=== PATIENT | male | born 1980 | race Caucasian/White ===

== ENCOUNTER 2021-06-22 01:37 | Inpatient (IN) | payer SELFPAY ==
[2021-06-22] VITALS (22 sets, daily range): BP systolic 109–172; BP diastolic 81–108; PULSE 75–132; RESP 14–28; TEMP 36.5–39.1; O2SAT 89–99; BMI 35.9
--- NOTE | 2021-06-22 01:38 | XRR_ITS ---
PROCEDURE INFORMATION: Exam: XR Chest Exam date and time: 06/22/2021 1:38 AM Age: 40 years old Clinical indication: Dyspnea; Additional info: Cough TECHNIQUE: Imaging protocol: XR of the chest. Views: 1 view. COMPARISON: No relevant prior studies available. FINDINGS: Lungs: Bilateral pulmonary infiltrates which may be secondary to pneumonia or COVID-19. Pleural spaces: Unremarkable. No pleural effusion. No pneumothorax. Heart/Mediastinum: Unremarkable. No cardiomegaly. Bones/joints: Unremarkable. XR/XR chest 1V portable [id number] IMPRESSION: Bilateral pulmonary infiltrates which may be secondary to pneumonia or COVID-19. Radiation Dose CTDIVOL = (mGy): DLP = (mGy-cm)
--- NOTE | 2021-06-22 01:44 | ECG_ITS ---
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 Measurements Intervals [place] Rate: 128 P: 19 SD: 141 QRS: 68 QRSD: 90 T: 34 QT: 298 QTc: 435 Interpretive Statements SINUS TACHYCARDIA ABNORMAL RHYTHM ECG No previous ECG available for comparison Electronically Signed On 06-22-2021 15:53:00 NURSE CASE MANAGEMENT by Kylah Viera M.D. [id number]
--- NOTE | 2021-06-22 01:47 | W.ED.SOB ---
HPI - SOB/Dyspnea General: Chief Complaint: Shortness of Breath/Dyspnea Stated Complaint: Cough, shortness of breath Time Seen by Provider: 06/22/21 01:42 Source: EMS Mode of arrival: EMS Limitations: no limitations History of Present Illness: HPI Narrative: 40-year-old male states he is not felt well over the last week. He states he has been traveling for his job and is been around a lot of people he states over the last week he has had cough fever body aches and increased shortness of breath. He states his shortness of breath got much worse tonight. Patient is hypoxic with EMS he is currently on 6 L and is 89%. He states his cough has been productive he is a smoker he has no known lung issues in the past. He is febrile as well he denies any worsening improving factors denies any pain denies any vomiting or diarrhea. Associated symptoms: Reports fever(s); Deny abdominal pain, chest pain, nausea or vomiting Review of Systems Const: Reports: fever(s), chills and body aches Eyes: Denies: blurry vision or eye discomfort ENMT: Denies: throat pain or dental pain Card: Denies: chest pain Resp: Reports: dyspnea and productive cough GI: Denies: abdominal pain, nausea, vomiting or diarrhea : Denies: dysuria Musc: Denies: neck pain or back pain Skin/Breast: Denies: rash Neuro: Denies: headache(s) Psych: Denies: depression Nav/Lymph: Denies: easy bruising All/Imm: Denies: urticaria Physical Exam Const: COMMON NORMALS: patient oriented x3 GENERAL APPEARANCE: in distress and ill appearing HENMT: COMMON NORMALS: normocephalic and atraumatic HEAD & SCALP: normocephalic and atraumatic Eye: COMMON NORMALS: Equal, round and reactive pupils present and EOMs intact bilaterally PUPIL: Yes Equal, round and reactive pupils present Neck/C-Spine: COMMON NORMALS: full ROM and supple Chest: COMMONS NORMALS: normal inspection of the chest and normal palpation of entire chest wall Resp: COMMON NORMALS: normal respiratory effort, No retractions and No use of accessory muscles EFFORT & INSPECTION: Yes tachypneic AUSCULTATION: rales and wheezes Cardio: COMMON NORMALS: regular rhythm and No murmurs present (Cardio) RATE: tachycardic RHYTHM: regular rhythm GI: COMMON NORMALS: Normal to inspection, nondistended, normoactive bowel sounds present, Soft to palpation, non-tender and no masses PALPATION: Yes Soft to palpation Extremity: COMMON NORMALS: normal to inspection and full ROM Neuro: COMMON NORMALS: patient oriented x3, moves all extremities and no focal motor deficits Psych: COMMON NORMALS: mental status grossly normal, Normal thought process present and cooperative THOUGHT PROCESS: Normal thought process present Skin: COMMON NORMALS: no rashes or lesions noted and no wounds GENERAL SKIN EXAM: no rashes or lesions noted Course Vital Signs: Vital signs: Vital Signs Temperature 100.8 F H 06/22/21 02:15 Pulse Rate 122 H 06/22/21 02:21 Respiratory Rate 20 H 06/22/21 02:15 Blood Pressure 172/101 06/22/21 02:15 Pulse Oximetry 93 06/22/21 02:21 MDM - SOB/Dyspnea MDM Narrative: Medical decision making narrative: Patient presents here with bacterial versus Covid pneumonia requiring BiPAP he is much improved on BiPAP currently at 40% oxygen on BiPAP spoke to hospitalist and will admit at this time we will send a [facility] Covid as his rapid was negative patient was started on IV antibiotics as well. Lab Data: Labs: Lab Results 06/22/21 06/22/21 06/22/21 01:49 01:49 01:49 WBC 9.5 10^3/uL 10^3/ uL (4.0-10.0) RBC 3.22 10^6/uL L 10 ^6/uL (4.1-5.3) Hgb 11.2 g/dL L g/dL (11.7-16.6) Hct 31.7 % L % (42.0-52.0) MCV 98.4 fl H fl (80-94) MCH 34.8 pg H pg (28.0-34.0) MCHC 35.3 g/dL g/dL (30.0-36.0) RDW 12.9 % % (12.1-15.1) Plt Count 278 10^3/cmm 10^3 /cmm (130-400) MPV 10.7 fL H fL (7.4-10.4) Neut % (Auto) 71.6 % % Lymph % (Auto) 16.1 % % Noble % (Auto) 9.9 % % Eos % (Auto) 0.3 % % Baso % (Auto) 0.7 % % Neut # (Auto) 6.77 10^3/uL 10^3 /uL (1.8-7.7) Lymph # (Auto) 1.5 10^3/uL 10^3/ uL (0.8-4.8) Noble # (Auto) 0.9 10^3/uL 10^3/ uL (0.2-0.9) Eos # (Auto) 0.0 10^3/uL 10^3/ uL (0.0-0.8) Baso # (Auto) 0.1 10^3/uL 10^3/ uL (0.0-0.1) Nucleated RBC % (a uto) 0 % % Nucleated RBCs # 0.0 /100WBC /100W BC PT 14.20 SECONDS SEC ONDS (12.1-14.9) INR 1.07 (0.8-1.2) Specimen Type Sample Site ABG pH ABG pCO2 ABG pO2 ABG HCO3 ABG Base Excess Raul Test Hematocrit Hgb O2 Saturation Carboxyhemoglobin Methemoglobin Total Hemoglobin O2 Delivery Device O2 Liters/Min Sewer Pipe Cleaner ID Sodium Potassium Chloride Carbon Dioxide Anion Gap BUN Creatinine GFR Calculation Glucose Calculated Osmolal ity Lactic Acid Calcium Ferritin Total Bilirubin AST ALT Alkaline Phosphata se C-Reactive Protein NT-Pro-B Natriuret Pep Total Protein Albumin Globulin SARS-CoV-2 Ag (Rap id) Negative (Negative) 06/22/21 06/22/21 06/22/21 01:49 01:50 01:57 WBC RBC Hgb Hct MCV MCH MCHC RDW Plt Count MPV Neut % (Auto) Lymph % (Auto) Noble % (Auto) Eos % (Auto) Baso % (Auto) Neut # (Auto) Lymph # (Auto) Noble # (Auto) Eos # (Auto) Baso # (Auto) Nucleated RBC % (a uto) Nucleated RBCs # PT INR Specimen Type Arterial Sample Site Radial, right ABG pH 7.54 H (7.35-7.45) ABG pCO2 34.5 mmHg L mmHg (35-45) ABG pO2 46.2 mmHg L mmHg (80.0-100.0) ABG HCO3 29.4 mmol/L H mmo l/L (22-26) ABG Base Excess 6.7 mmol/L H mmol /L (-2.0-2.0) Raul Test Pos Hematocrit 35.9 % L % (42-52) Hgb O2 Saturation 82.9 % L % (95-100) Carboxyhemoglobin 2.0 %THgb %THgb (0.4-20.1) Methemoglobin 0.8 % % (0.4-1.5) Total Hemoglobin 11.7 g/dL L g/dL (14-18) O2 Delivery Device Nc O2 Liters/Min 6.0 % % Sewer Pipe Cleaner ID Buttr Sodium 140 mmol/L mmol/L (136-145) Potassium 3.7 mmol/L mmol/L (3.5-5.1) Chloride 100 mmol/L mmol/L (98-107) Carbon Dioxide 26 mmol/L mmol/L (22-29) Anion Gap 17.7 (5-19) BUN 3 mg/dL L mg/dL (6-20) Creatinine 0.4 mg/dL L mg/dL (0.7-1.2) GFR Calculation 237.1 mL/min H mL /min (90-130) Glucose 123 mg/dL H mg/dL (65-115) Calculated Osmolal ity 288 mOsm/kg mOsm/ kg (285-295) Lactic Acid 2.0 mmol/L mmol/L (0.5-2.2) Calcium 8.5 mg/dL mg/dL (8.5-10.5) Ferritin 304 ng/mL ng/mL (30-400) Total Bilirubin 0.2 mg/dL mg/dL (0.15-1.2) AST 22 U/L U/L (0-40) ALT 23 U/L U/L (0-41) Alkaline Phosphata se 80 IU/L IU/L (40-130) C-Reactive Protein 84.4 mg/L H mg/L (0.0-4.9) NT-Pro-B Natriuret Pep 1432 pg/mL H pg/m L (0-125) Total Protein 5.9 g/dL L g/dL (6.6-8.7) Albumin 3.3 g/dL L g/dL (3.5-5.2) Globulin 2.6 g/dL g/dL (1.3-4.6) SARS-CoV-2 Ag (Rap id) Imaging Data^: CXR: Attestation: I personally reviewed and interpreted this imaging study as follows: Radiologist's impression: [address] [address] XRay Report Signed Patient: Michael Ortiz Unit #: [id number] : 1980 Age/Sex: 40 / M ADM Date: 06/22/21 Loc: ER Room/Bed: Attending Dr: Ordering Provider/Ordering MD: Hans Jalloh MD Date of Service: 06/22/21 Procedure(s): XR chest 1V portable [id number] Accession Number(s): [id number] Report Number: [id number] PROCEDURE INFORMATION: Exam: XR Chest Exam date and time: 06/22/2021 1:38 AM Age: 40 years old Clinical indication: Dyspnea; Additional info: Cough TECHNIQUE: Imaging protocol: XR of the chest. Views: 1 view. COMPARISON: No relevant prior studies available. FINDINGS: Lungs: Bilateral pulmonary infiltrates which may be secondary to pneumonia or COVID-19. Pleural spaces: Unremarkable. No pleural effusion. No pneumothorax. Heart/Mediastinum: Unremarkable. No cardiomegaly. Bones/joints: Unremarkable. XR/XR chest 1V portable [id number] IMPRESSION: Bilateral pulmonary infiltrates which may be secondary to pneumonia or COVID-19. Radiation Dose CTDIVOL = (mGy): DLP = (mGy-cm) Dictated By: Michael Moncada Signed By: Michael Moncada Signed Date/Time: 06/22/21 0253 DD/ 0138 EKG Data^: EKG 1: Attestation: I personally reviewed and interpreted this EKG as follows: EKG Interpretation Date: 06/22/21 EKG interpretation time: 01:54 Interpretation: sinus tach hr [address] or t wave abnormalities qrs 90 qtc 374 Critical Care Time Critical Care Time: Critical Care Time: Yes Total Critical Care Time: 35 Attestation: The high probability of a clinically significant, sudden or life threatening deterioration of the patient's [] system(s) required my full and direct attention, intervention and personal management. The critical care time is as shown. This time is in addition to time spent performing any reported procedures but includes the following: [x] Data and vital sign review and interpretation [x] Patient assessment, examination and intervention [x] Documentation [x] Medication orders and management Discharge Plan Discharge Patient Disposition: Admitted As Inpatient Clinical Impression: Community acquired pneumonia Qualifiers: Laterality: right Lung location: unspecified part of lung Qualified Code(s): J18.9 - Pneumonia, unspecified organism Condition: Stable Coding Level of Care Code ED Petroleum Analyst for [facility] Exam Comprehensive
[2021-06-22 02:02] LABS: ABG PCO2 34.5 mmHg (35-45); ABG PH Result 7.54 (7.35-7.45); Arterial Blood Gas Hematocrit 35.9 % (42-52); Base Excess ABG 6.7 mmol/L (-2.0-2.0); Blood Gas Allen Test Pos; Blood Gas Sample Site Radial, right; Blood Gas Sample Type Arterial; HCO3 ABG 29.4 mmol/L (22-26); HGB O2 Sat 82.9 % (95-100); Methemoglobin 0.8 % (0.4-1.5); Oxygen Device NC; PO2 ABG 46.2 mmHg (80.0-100.0); Total Hemoglobin 11.7 g/dL (14-18)
[2021-06-22] MEDS: acetaminophen 500 mg Tablet 1000 MG PO (02:03)
[2021-06-22] MEDS: dexamethasone 10 mg/mL INJ 6 MG IVP (02:04)
[2021-06-22] MEDS: sodium chloride 0.9% 1,000 ML 999 ML IV ×2 (02:07→03:09)
[2021-06-22 02:11] LABS: INR 1.07 (0.8-1.2)
[2021-06-22 02:12] LABS: Basophils # 0.1 10^3/uL (0.0-0.1); Basophils % 0.7 %; Eosinophils % 0.3 %; Hematocrit 31.7 % (42.0-52.0); Hemoglobin 11.2 g/dL (11.7-16.6); Lymphocytes # 1.5 10^3/uL (0.8-4.8); Lymphocytes % 16.1 %; Mean Corpuscular HGB Conc 35.3 g/dL (30.0-36.0); Mean Corpuscular Hemoglobin 34.8 pg (28.0-34.0); Mean Corpuscular Volume 98.4 fl (80-94); Mean Platelet Volume 10.7 fL (7.4-10.4); Monocytes # 0.9 10^3/uL (0.2-0.9); Monocytes % 9.9 %; Neutrophils # 6.77 10^3/uL (1.8-7.7); Neutrophils % 71.6 %; Nucleated Red Blood Cells % 0 %; Platelet Count 278 10^3/cmm (130-400); Red Blood Count 3.22 10^6/uL (4.1-5.3); Red Cell Distribution Width 12.9 % (12.1-15.1); White Blood Count 9.5 10^3/uL (4.0-10.0)
[2021-06-22 02:28] LABS: SARS Covid-2 Antigen Negative (Negative)
[2021-06-22 02:30] LABS: Alanine Aminotransferase 23 U/L (0-41); Albumin Level 3.3 g/dL (3.5-5.2); Alkaline Phosphatase 80 IU/L (40-130); Anion Gap 17.7 (5-19); Aspartate Amino Transferase 22 U/L (0-40); Blood Urea Nitrogen 3 mg/dL (6-20); C Reactive Protein 84.4 mg/L (0.0-4.9); Calcium 8.5 mg/dL (8.5-10.5); Carbon Dioxide 26 mmol/L (22-29); Chloride 100 mmol/L (98-107); Ferritin 304 ng/mL (30-400); Globulin 2.6 g/dL (1.3-4.6); Glomerular Filtration Rate 237.1 mL/min (90-130); Glucose 123 mg/dL (65-115); NT Pro B Type Natriuretic Pept 1432 pg/mL (0-125); Osmolality Calculated 288 mOsm/kg (285-295); Potassium 3.7 mmol/L (3.5-5.1); Sodium 140 mmol/L (136-145); Total Bilirubin 0.2 mg/dL (0.15-1.2); Total Protein 5.9 g/dL (6.6-8.7)
[2021-06-22 02:37] LABS: Slide Review Slide Review Perform
[2021-06-22] MEDS: azithromycin 500 MG in sodium chloride 0.9% 250 ML 250 MG IV ×2 (03:07→12:30)
[2021-06-22] MEDS: cefTRIAXone 1,000 MG in sodium chloride 0.9% (plus) 50 ML 100 MG IV ×2 (03:09→11:06)
[2021-06-22 03:35] LABS: D Dimer 4.75 ug/mIFEU (0-0.59)
--- NOTE | 2021-06-22 04:06 | PC.NURSE ---
Admit Note Patient admitted to CSU room 107 from ED via stretcher. Covering service notified. Patient presents with increased work of breathing over past five days. Patient is febrile at this time 102.3. Patient stated, I am an alcoholic . He reports drinking a lot of hard liquour daily. Informed Dr Carson of patient's report of being an alcoholic and received telephone order to begin CIWA protocol. RBVO this order. Patient denies any home medications or medical history. Orders reviewed & will continue to monitor. Patient oriented to environment, equipment, and informed of the following as found in the admission booklet: patient rights & responsibilities, visitor policy, hand and respiratory hygiene practice. Other education includes: use of cpap/bipap, oxygen SpO2 and CIWA protocol. Patient verbalized complete understanding.
[2021-06-22] MEDS: LORazepam 2 mg/mL INJ 1 mL IVP ×2 (04:34→20:59)
--- NOTE | 2021-06-22 07:04 | CTR_ITS ---
PROCEDURE INFORMATION: Exam: CTA Chest With Contrast Exam date and time: 06/22/2021 7:04 AM Age: 40 years old Clinical indication: Shortness of breath; Additional info: Evalute for pe, possible covid, elevated d dimer TECHNIQUE: Imaging protocol: Computed tomographic angiography of the chest with contrast. 3D rendering (Not supervised by radiologist): MIP and/or 3D reconstructed images were created by the technologist. Radiation optimization: All CT scans at this facility use at least one of these dose optimization techniques: automated exposure control; mA and/or kV adjustment per patient size (includes targeted exams where dose is matched to clinical indication); or iterative reconstruction. Contrast material: OMNI 350; Contrast volume: 95 ml; Contrast route: INTRAVENOUS (IV); COMPARISON: XR CHEST 06/22/2021 2:02 AM RADIATION DOSE METRICS: Total DLP (mGy-cm): 1183.73 FINDINGS: Pulmonary arteries: No sign of acute pulmonary embolism. Aorta: No thoracic aortic aneurysm or dissection when allowing for pulsation artifact. Lungs: There are bilateral, multifocal mixed character pulmonary opacities, some ground-glass and interstitial with others being densely consolidative with air bronchogram formation. The findings would be compatible with bilateral pneumonia, potentially due to COVID-19. Pleural spaces: Trace right pleural effusion. No pneumothorax. Heart: The heart is not enlarged. No pericardial effusion. Lymph nodes: Slightly prominent mediastinal and right hilar lymph nodes. Bones/joints: Mild multilevel disc degeneration which Schmorl's node formation in the thoracic spine. Soft tissues: No acute soft tissue abnormality. CT/CT angio chest PE protcl [id number] IMPRESSION: 1. No sign of acute pulmonary embolism. 2. Bilateral pneumonia, potentially due to COVID-19. Radiation Dose CTDIVOL = (mGy): DLP = 1183.73 (mGy-cm)
--- NOTE | 2021-06-22 07:18 | PM.HP ---
Providers/Chief Complaint Admitting Physician: Angela Carson MD Chief Complaint: Cough, shortness of breath History of Present Illness Michael Ortiz is a 40 year old male prsenting to ER today with one week of cough, dyspnea, generalized weakness and fever. CXR shows B/L pneumonia, new 02 requirement of 5lpm. No hemoptysis. Review of Systems General: Reports: 10 or more systems reviewed and unremarkable except in HPI and below Const: Denies: fever(s), chills or body aches Eyes: Denies: change in vision, blurry vision or photophobia ENMT: Reports: hoarseness; Denies: throat pain, enlarged tonsils, odynophagia or nasal congestion Card: Denies: chest pain, palpitations, irregular heart rhythm, edema, swelling of feet/ankles, lightheadedness, pre-syncope, dyspnea on exertion or orthopnea Resp: Denies: dyspnea, productive cough, non-productive cough, wheezing, stridor, pain on inspiration, change in phlegm color, hemoptysis or chest congestion GI: Denies: abdominal pain, nausea, vomiting, hematemesis, coffee ground emesis, dysphagia, heartburn, diarrhea, constipation, GI cramping, change in stool character, hematochezia or melena : Denies: flank pain, dysuria, urinary frequency, urinary urgency, urinary hesitancy or hematuria Musc: Denies: neck pain, back pain, extremity pain, joint swelling, joint warmth or deformity Neuro: Denies: headache(s), numbness in extremities, weakness in extremities, sensory changes, difficulty walking, frequent falls, dizziness, vertigo, behavioral changes, Slurred speech present or seizure-like activity Psych: Denies: anxiety, depression, suicidal ideation or homicidal ideation Endo: Denies: polyuria, polydipsia, tired all the time, cold intolerance or hot flashes Nav/Lymph: Denies: easy bruising or easy bleeding Medications/Allergies Home Medications Medication Instructions Recorded Confirmed Last Taken Type No Known Home Medications 06/22/21 06/22/21 Unknown History Allergies Allergy/AdvReac Type Severity Reaction Status Date / Time Penicillins Allergy Unknown Verified 06/22/21 01:44 Vitals/I&O/Wt Last Vital Signs Temp 102.3 F H 06/22/21 04:05 Pulse 90 06/22/21 06:15 Resp 19 H 06/22/21 06:15 BP 138/107 06/22/21 04:05 Pulse Ox 94 06/22/21 06:15 06/21/21 06/22/21 06/22/21 22:59 06:59 14:59 Intake Total 2300 / 2300 Output Total 700 / 700 Balance 1600 / 1600 Weight last 48 hrs Weight 113.398 kg Physical Exam Narrative: EXAM NARRATIVE: General: No acute distress, AO x3 HEENT: PERRLA, pupils bilaterally equal and reactive, pallors not present Chest: B/L coarse breath sounds CVS: S1-S2 regular, no murmurs, no tachycardia, no gallops, no rubs Abdomen: Soft, nontender, no organomegaly, bowel sounds present Neuro: No focal deficits, no facial deformity, AO x3, power 5/5 in all limbs Data : 06/22/21 01:49 06/22/21 01:49 Other Labs: Laboratory Results WBC 9.5 10^3/uL (4.0-10.0) 06/22/21 01:49 RBC 3.22 10^6/uL (4.1-5.3) L 06/22/21 01:49 Hgb 11.2 g/dL (11.7-16.6) L 06/22/21 01:49 Hct 31.7 % (42.0-52.0) L 06/22/21 01:49 MCV 98.4 fl (80-94) H 06/22/21 01:49 MCH 34.8 pg (28.0-34.0) H 06/22/21 01:49 MCHC 35.3 g/dL (30.0-36.0) 06/22/21 01:49 RDW 12.9 % (12.1-15.1) 06/22/21 01:49 Plt Count 278 10^3/cmm (130-400) 06/22/21 01:49 MPV 10.7 fL (7.4-10.4) H 06/22/21 01:49 Neut % (Auto) 71.6 % 06/22/21 01:49 Lymph % (Auto) 16.1 % 06/22/21 01:49 Stephenson % (Auto) 9.9 % 06/22/21 01:49 Eos % (Auto) 0.3 % 06/22/21 01:49 Baso % (Auto) 0.7 % 06/22/21 01:49 Neut # (Auto) 6.77 10^3/uL (1.8-7.7) 06/22/21 01:49 Lymph # (Auto) 1.5 10^3/uL (0.8-4.8) 06/22/21 01:49 Stephenson # (Auto) 0.9 10^3/uL (0.2-0.9) 06/22/21 01:49 Eos # (Auto) 0.0 10^3/uL (0.0-0.8) 06/22/21 01:49 Baso # (Auto) 0.1 10^3/uL (0.0-0.1) 06/22/21 01:49 Nucleated RBC % (auto) 0 % 06/22/21 01:49 Nucleated RBCs # 0.0 /100WBC 06/22/21 01:49 PT 14.20 SECONDS (12.1-14.9) 06/22/21 01:49 INR 1.07 (0.8-1.2) 06/22/21 01:49 D-Dimer 4.75 ug/mIFEU (0-0.59) H 06/22/21 01:49 Specimen Type Arterial 06/22/21 01:50 Sample Site Radial, right 06/22/21 01:50 ABG pH 7.54 (7.35-7.45) H 06/22/21 01:50 ABG pCO2 34.5 mmHg (35-45) L 06/22/21 01:50 ABG pO2 46.2 mmHg (80.0-100.0) L 06/22/21 01:50 ABG HCO3 29.4 mmol/L (22-26) H 06/22/21 01:50 ABG Base Excess 6.7 mmol/L (-2.0-2.0) H 06/22/21 01:50 Raul Test Pos 06/22/21 01:50 Hematocrit 35.9 % (42-52) L 06/22/21 01:50 Hgb O2 Saturation 82.9 % (95-100) L 06/22/21 01:50 Carboxyhemoglobin 2.0 %THgb (0.4-20.1) 06/22/21 01:50 Methemoglobin 0.8 % (0.4-1.5) 06/22/21 01:50 Total Hemoglobin 11.7 g/dL (14-18) L 06/22/21 01:50 O2 Delivery Device Nc 06/22/21 01:50 O2 Liters/Min 6.0 % 06/22/21 01:50 Rotary Driller ID Buttr 06/22/21 01:50 Sodium 140 mmol/L (136-145) 06/22/21 01:49 Potassium 3.7 mmol/L (3.5-5.1) 06/22/21 01:49 Chloride 100 mmol/L (98-107) 06/22/21 01:49 Carbon Dioxide 26 mmol/L (22-29) 06/22/21 01:49 Anion Gap 17.7 (5-19) 06/22/21 01:49 BUN 3 mg/dL (6-20) L 06/22/21 01:49 Creatinine 0.4 mg/dL (0.7-1.2) L 06/22/21 01:49 GFR Calculation 237.1 mL/min (90-130) H 06/22/21 01:49 Glucose 123 mg/dL (65-115) H 06/22/21 01:49 Calculated Osmolality 288 mOsm/kg (285-295) 06/22/21 01:49 Lactic Acid 2.0 mmol/L (0.5-2.2) 06/22/21 01:57 Calcium 8.5 mg/dL (8.5-10.5) 06/22/21 01:49 Ferritin 304 ng/mL (30-400) 06/22/21 01:49 Total Bilirubin 0.2 mg/dL (0.15-1.2) 06/22/21 01:49 AST 22 U/L (0-40) 06/22/21 01:49 ALT 23 U/L (0-41) 06/22/21 01:49 Alkaline Phosphatase 80 IU/L (40-130) 06/22/21 01:49 C-Reactive Protein 84.4 mg/L (0.0-4.9) H 06/22/21 01:49 NT-Pro-B Natriuret Pep 1432 pg/mL (0-125) H 06/22/21 01:49 Total Protein 5.9 g/dL (6.6-8.7) L 06/22/21 01:49 Albumin 3.3 g/dL (3.5-5.2) L 06/22/21 01:49 Globulin 2.6 g/dL (1.3-4.6) 06/22/21 01:49 SARS-CoV-2 Ag (Rapid) Negative (Negative) 06/22/21 01:49 Impressions Chest X-Ray 06/22/21 01:38 IMPRESSION: Bilateral pulmonary infiltrates which may be secondary to pneumonia or COVID-19. Radiation Dose CTDIVOL = (mGy): DLP = (mGy-cm) Micro: Microbiology 06/22/21 02:01 Blood Culture - Preliminary Blood SPECIMEN COLLECTED 06/22/21 01:57 Blood Culture - Preliminary Blood SPECIMEN COLLECTED A&P Assessment and plan (1) Community acquired pneumonia: Meets sepsis criteria by way of fever, tacycardia and tachypnea clinically euvolemic, holding off on IVF for now pending BNP Blood cx taken prior to abx initiation B/L infiltrates on CXR elevated CRP and D dimer Check CTA to evalute for PE Ceftriaxone, azithromycin for empiric coverage high suspicion for covid 19 pneumonia remdisivir 200mg iv x 1 presumptively while awaiting covid pcr results. 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
[2021-06-22] MEDS: ipratropium-albuterol 3 mL Neb INHALATION ×3 (09:00→20:17)
[2021-06-22] MEDS: budesonide 0.5 mg/2 mL Neb INHALATION ×2 (09:00→20:17)
[2021-06-22] MEDS: remdesivir 200 MG in sodium chloride 0.9% (100 ml) 100 ML 100 MG IV (09:04)
[2021-06-22] MEDS: benzonatate 100 mg Capsule PO ×3 (09:05→20:47)
[2021-06-22] MEDS: multivitamin therapeutic Tablet 1 TAB PO (09:05)
[2021-06-22] MEDS: folic acid 1 mg Tablet PO (09:05)
[2021-06-22] MEDS: thiamine 100 mg Tablet PO (09:05)
[2021-06-22] MEDS: dexamethasone 4 mg/mL INJ 6 MG IVP (09:05)
[2021-06-22] MEDS: iohexol 350 mg/mL 100 mL Btl IV (10:53)
[2021-06-22] MEDS: enoxaparin 120 mg/0.8 mL Syringe 110 MG SUBCUT (11:07)
[2021-06-22] MEDS: zinc gluconate 50 mg Tablet PO (11:07)
--- NOTE | 2021-06-22 12:37 | P.PN_ITS ---
Subjective Subjective: Interval history: Admitted overnight. Currently on 3 L saturating 92%. Denies any nausea vomiting, headache. States he has been having difficulty breathing and cough going on for 5 days. Not aware of any known COVID-19 exposure. Not vaccinated. Denies any chest pain. States he does not have any other medical problems. Vitals/I&O/Wt Last Vital Signs Temp 97.7 F 06/22/21 11:22 Pulse 77 06/22/21 12:00 Resp 14 06/22/21 12:00 BP 109/82 06/22/21 12:00 Pulse Ox 98 06/22/21 12:00 06/21/21 06/22/21 06/22/21 22:59 06:59 14:59 Intake Total 2300 / 2300 Output Total 700 / 700 Balance 1600 / 1600 Weight last 48 hrs Weight 113.398 kg Physical Exam Narrative: EXAM NARRATIVE: General: No acute distress, AO x3, extensive tatto os present all over the body HEENT: PERRLA, pupils bilaterally equal and reactive Chest: Normal vesicular breath sounds, no added sounds, equal good air entry bilaterally CVS: S1-S2 regular, no murmurs, no tachycardia, no gallops, no rubs Abdomen: Soft, nontender, no organomegaly, bowel sounds present Neuro: No focal deficits, no facial deformity, AO x3, power 5/5 in all limbs Data : 06/22/21 01:49 06/22/21 01:49 Micro: Microbiology 06/22/21 02:01 Blood Culture - Preliminary Blood SPECIMEN COLLECTED 06/22/21 01:57 Blood Culture - Preliminary Blood SPECIMEN COLLECTED A&P Assessment and plan (1) Hypoxia: Status: Acute (2) Community acquired pneumonia: Status: Acute Qualifiers: Laterality: right Lung location: unspecified part of lung Qualified Code(s): J18.9 - Pneumonia, unspecified organism (3) Alcohol abuse: Status: Acute Additional A&P Information Hypoxia: Secondary to pneumonia: Community-acquired versus COVID-19. CTA appreciated. No pulmonary embolism but high concern for COVID-19. COVID-19 antigen negative, PCR sent out. Repeat COVID-19 antigen. For now until illness patient is proven to be COVID-19 PCR negative we will co ntinue with dexamethasone 6 mg IV daily, remdesivir for a 5-day course. DuoNebs every 6 hour, budesonide twice daily. Pulmonary toilet with incentive spirometry flutter valve. D-dimer elevated. CTA negative for pulmonary embolism. Given 1 dose of full dose anticoagulation. For now we will switch over to Lovenox at prophylactic dose. Can switch over to Eliquis 5 mg twice daily if patient comes covert 19+. Check sputum culture, procalcitonin, urine Legionella, bacterial antigen, blood culture, MRSA swab, flu swab. For now continue with antibiotics for community- acquired pneumonia with ceftriaxone and azithromycin. Given hypoxia will try to keep patient as negative as possible. proBNP elevated. Fluid restriction up to 1500 cc. No history of congestive heart failure. Continue to monitor. Strict input output charting, daily weights. History of alcohol abuse: Drinks half a pint of hard liquor daily. CIWA protocol. Oral folic acid and thiamine. Full code. Lovenox for DVT prophylaxis. Famotidine for PUD prophylaxis. Attestations Medical Necessity Statement*: Requires further hospitalization for management of hypoxia secondary to pneumonia while COVID-19 is ruled out Time Spent in Patient Care: Greater than 35 minutes (>than 50% of time spe nt in counselling and/or direct pt care on unit) . Coding Level of Care Code Acute Blow Up Operator for [facility] Fwd Diagnoses Hypoxia R09.02 Community acquired pneumonia J18.9 Laterality: right Lung location: unspecified part of lung Alcohol abuse F10.10
[2021-06-22 12:48] LABS: Fibrinogen 804 mg/dL (174-498)
[2021-06-22 13:08] LABS: Ferritin 295 ng/mL (30-400); Lactate Dehydrogenase 181 U/L (135-225); Magnesium 1.6 mg/dL (1.7-2.3); Phosphorus 3.3 mg/dL (2.5-4.5)
[2021-06-22 13:18] LABS: NT Pro B Type Natriuretic Pept 1657 pg/mL (0-125)
[2021-06-22 15:01] LABS: Add Urine Microscopic? NO; Charge for UA Resulting for Rev
[2021-06-22 15:15] LABS: Bilirubin Urine Neg (Negative); Blood Urine Neg (Negative); Glucose Urine UA 2+ (Normal); Ketones Urine Negative (Negative); Leukocyte Esterase Urine Negative (Negative); Nitrate Urine Negative (Negative); Protein Urine Neg (Negative); Specific Gravity, Urine 1.005 (1.005-1.030); Urine Appearance Clear (CLEAR); Urine Color Straw (Yellow); Urobilinogen Urine Norm (Negative); pH Urine 7 (5-7)
[2021-06-22 15:33] LABS: Influenza A by IFA Negative (Negative); Influenza B by IFA Negative (Negative); SARS Covid-2 Antigen Negative (Negative)
--- NOTE | 2021-06-22 17:00 | PC.NURSE ---
Pt sitting on the side of bed talking to on phone and eating dinner. Pts resp even and non-labored no distress or sob noted. Pt O2 sats 92% on room air. Pt had no c/o pain or discomfort at the present time. No needs voiced. Call light in reach. Will cont to monitor.
[2021-06-22 18:21] LABS: Estmated Average Glucose 91; Hemoglobin A1C 4.8 % (4.0-6.0)
[2021-06-22] MEDS: famotidine 20 mg Tablet PO (19:28)
[2021-06-22 20:23] LABS: Glucose Point of Care 182 mg/dL (70-110)
[2021-06-23] VITALS (17 sets, daily range): BP systolic 131–150; BP diastolic 86–100; PULSE 69–105; RESP 18–30; TEMP 36.6–36.7; O2SAT 90–98
[2021-06-23] MEDS: ipratropium-albuterol 3 mL Neb INHALATION ×3 (03:01→20:29)
[2021-06-23] MEDS: remdesivir 100 MG in sodium chloride 0.9% (100 ml) 80 ML IV (06:00)
[2021-06-23] MEDS: dexamethasone 4 mg/mL INJ 6 MG IVP (06:01)
[2021-06-23 06:18] LABS: Basophils % 0.2 %; Hematocrit 30.4 % (42.0-52.0); Hemoglobin 9.9 g/dL (11.7-16.6); Lymphocytes # 0.8 10^3/uL (0.8-4.8); Lymphocytes % 6.6 %; Mean Corpuscular HGB Conc 32.6 g/dL (30.0-36.0); Mean Corpuscular Hemoglobin 34.4 pg (28.0-34.0); Mean Corpuscular Volume 105.6 fl (80-94); Mean Platelet Volume 9.7 fL (7.4-10.4); Monocytes # 0.7 10^3/uL (0.2-0.9); Monocytes % 5.3 %; Neutrophils # 10.67 10^3/uL (1.8-7.7); Neutrophils % 87.2 %; Nucleated Red Blood Cells % 0 %; Platelet Count 395 10^3/cmm (130-400); Red Blood Count 2.88 10^6/uL (4.1-5.3); Red Cell Distribution Width 13.2 % (12.1-15.1); White Blood Count 12.2 10^3/uL (4.0-10.0)
[2021-06-23 06:25] LABS: Glucose Point of Care 168 mg/dL (70-110)
[2021-06-23 06:27] LABS: D Dimer 2.52 ug/mIFEU (0-0.59)
[2021-06-23 06:49] LABS: Alanine Aminotransferase 16 U/L (0-41); Alkaline Phosphatase 101 IU/L (40-130); Anion Gap 15.6 (5-19); Aspartate Amino Transferase 13 U/L (0-40); Blood Urea Nitrogen 11 mg/dL (6-20); Calcium 8.8 mg/dL (8.5-10.5); Carbon Dioxide 27 mmol/L (22-29); Chloride 100 mmol/L (98-107); Globulin 3.2 g/dL (1.3-4.6); Glomerular Filtration Rate 237.1 mL/min (90-130); Glucose 158 mg/dL (65-115); Osmolality Calculated 291 mOsm/kg (285-295); Potassium 3.6 mmol/L (3.5-5.1); Sodium 139 mmol/L (136-145); Total Bilirubin 0.2 mg/dL (0.15-1.2); Total Protein 6.2 g/dL (6.6-8.7)
[2021-06-23 07:23] LABS: C Reactive Protein 109.6 mg/L (0.0-4.9); Chol HDL Ratio 2.29 mg/dL (1.0-5.00); Cholesterol 112 mg/dL (0-200); HDL Cholesterol 49 mg/dL (60-100); LDL Cholesterol Calculated 51 mg/dL (50-129); Triglycerides 60 mg/dL (0-150); VLDL Cholestrol Calculation 12 mg/dL (0-30)
[2021-06-23 07:30] LABS: Procalcitonin 0.37 ng/mL (0-0.5)
[2021-06-23] MEDS: enoxaparin 40 mg/0.4 mL Syringe SUBCUT (08:49)
[2021-06-23] MEDS: benzonatate 100 mg Capsule PO ×3 (08:50→20:29)
[2021-06-23] MEDS: insulin lispro 100 unit/1 mL SUBCUT ×3 (08:50→17:38)
[2021-06-23] MEDS: famotidine 20 mg Tablet PO ×2 (08:51→17:38)
[2021-06-23] MEDS: zinc gluconate 50 mg Tablet PO (08:51)
[2021-06-23] MEDS: thiamine 100 mg Tablet PO (08:51)
[2021-06-23] MEDS: folic acid 1 mg Tablet PO (08:51)
[2021-06-23] MEDS: multivitamin therapeutic Tablet 1 TAB PO (08:51)
--- NOTE | 2021-06-23 09:15 | PC.CHAP ---
Pastoral Care Encounter/Spiritual Assessment Type of Contact [] Declined drilling field professional visit [] Patient/Family/Request visit [] Outpatient visit [] Follow-up visit [] Physician referral [] Code/Alert [x] Routine visit [] Staff referral [] Actively dying [] Patient sleeping [] Family support [] [] Out of room [] Palliative care [] [] Receiving care in room [] Pre-surgical visit [] Trauma [] Long length of stay [] ICU visit [x] Other: covid Relational/Emotional Strength [] Patient feels connected with others/family/visitors/staff [] Distress [] Loneliness/isolation [] Abandonment Spirituality of Patient [] Person of Elsa [] Attends Pentecostal of their Elsa [] Believes in Prayer [] Reads Bible or Adventism materials [] There are Spiritual issues to be addressed Senior Service Aide Interventions [x] Prayer [x] Active listening [x] Non-anxious presence [x] Spiritual/emotional support [] Crisis/trauma care [] Spiritual counseling [] Bereavement support [] Provided bereavement packet [] Provided Bible/devotional materials [] Provided toy/stuffed animal, coloring book to patient or family member [] Provided Communion [] Anointing/[place] [] Salvation [x] Completed spiritual assessment [] Other: Impact on Illness or Injury [] Angry [] Fearful [] Anxious [] Often cries [] Exhaustion [] Unable to work [] Unable to attend orthodoxy [] Unable to walk/stand [] Unable to read [] Unable to drive [] Unable to eat/drink [] Unable to sleep [] Unable to be with family [] Patient intubated [] Other: Summary prayed for healing Time spent with patient 5 min
[2021-06-23] MEDS: budesonide 0.5 mg/2 mL Neb INHALATION ×2 (09:54→20:29)
[2021-06-23] MEDS: cefTRIAXone 1,000 MG in sodium chloride 0.9% (plus) 50 ML 100 MG IV (11:16)
[2021-06-23 11:58] LABS: Glucose Point of Care 144 mg/dL (70-110)
[2021-06-23] MEDS: azithromycin 500 MG in sodium chloride 0.9% 250 ML 250 MG IV (12:10)
--- NOTE | 2021-06-23 12:50 | USCV_ITS ---
Michael Ortiz Age: 40 Gender: M : 1980 Exam Date: 06/23/2021 15:34 Ordering Phys: Moise Reeves MD Technologist: MAIK [place] [facility] [place]: HIGH D-DIMER HISTORY: Lower extremity swelling. PROCEDURES: Venous duplex imaging was performed in bilateral lower extremities. The following venous structures were evaluated: common femoral vein, profunda vein, proximal portion of the greater saphenous vein, superficial femoral vein, and the popliteal vein. In addition, the posterior tibial and peroneal trunk were evaluated. FINDINGS: Normal 2-D Doppler and augmentation and compressibility throughout the lower extremity venous structures. Additional imaging through the proximal calf veins also reveals no thrombus. Limited evaluation of the greater saphenous vein is patent with no thrombus. CONCLUSIONS No DVT bilateral lower extremities. Dr. Kenia Gongora DO (Electronically Signed) Final Date: 23 June 2021 16:11 S
[2021-06-23 16:59] LABS: Glucose Point of Care 159 mg/dL (70-110)
--- NOTE | 2021-06-23 17:00 | PC.NURSE ---
Pt sitting up in bed resting and watching tv. Resp even and non-labored no distress or sob noted. Pt O2 sat 92% on room air. Pt had no c/o pain or discomfort at the present time. No needs voiced. Call light in reach.
[2021-06-23 19:56] LABS: Glucose Point of Care 112 mg/dL (70-110)
--- NOTE | 2021-06-23 22:24 | P.PN_ITS ---
Subjective Subjective: Interval history: He is coughing. Coughing up some phlegm. Today coughed up some blood. No recurrence of hemoptysis so far. Tolerating prophylactic dose Lovenox. Vitals/I&O/Wt Last Vital Signs Temp 98 F 06/23/21 19:36 Pulse 90 06/23/21 20:46 Resp 23 H 06/23/21 20:32 BP 150/100 06/23/21 19:36 Pulse Ox 90 06/23/21 20:32 06/23/21 06/23/21 06/23/21 06:59 14:59 22:59 Intake Total 100 / 400 50 / 50 Output Total 550 / 1900 Balance -450 / -1500 50 / 50 Weight last 48 hrs Weight 113.2 kg Weight 113.398 kg Physical Exam Const: COMMON NORMALS: no acute distress, patient oriented x3 and alert GENERAL APPEARANCE: cooperative ORIENTATION/CONSCIOUSNESS: Yes awake OTHER: Pleasant, conversant. HENMT: COMMON NORMALS: oropharynx normal Neck/C-Spine: COMMON NORMALS: no JVD Resp: COMMON NORMALS: normal respiratory effort and clear to auscultation bilaterally AUSCULTATION: clear to auscultation bilaterally Cardio: COMMON NORMALS: no JVD, regular rhythm, S1 normal heart sound present, S2 normal heart sound present and No murmurs present (Cardio) RHYTHM: regular rhythm HEART SOUNDS: S1 normal heart sound present and S2 normal heart sound present GI: COMMON NORMALS: Normal to inspection, nondistended, normoactive bowel sounds present, Soft to palpation and non-tender PALPATION: Yes Soft to palpation Extremity: COMMON NORMALS: no joint enlargement and no pedal edema Neuro: COMMON NORMALS: patient oriented x3 and moves all extremities SENSORIUM/ORIENTATION: Yes alert Skin: COMMON NORMALS: no rashes or lesions noted GENERAL SKIN EXAM: no rashes or lesions noted OTHER: Tattoos Data : 06/23/21 05:53 06/23/21 05:33 Micro: Microbiology 06/22/21 13:30 MRSA Culture - Final Nose 06/22/21 02:01 Blood Culture - Preliminary Blood Strep species, alpha hemolytic 06/22/21 01:57 Blood Culture - Preliminary Blood Strep species, alpha hemolytic 06/23/21 05:33 Blood Culture - Preliminary Blood SPECIMEN COLLECTED 06/23/21 05:33 Blood Culture - Preliminary Blood SPECIMEN COLLECTED A&P Assessment and plan (1) Hypoxia: Status: Acute (2) Community acquired pneumonia: Follow-up COVID-19 PCR. For now continue empiric therapy. He is subjectively starting to feel better. Hypoxia appears to be improving. We do not yet have an identified cause, although highly suspected COVID-19. Sending for PCR. D-dimer with decreased today down to 2.52. Reports episode of emesis yesterday, although so far tolerating prophylactic dose Lovenox. Repeat D-dimer tomorrow. No PE on CTA. Assessed lower extremity duplex today. Alphahemolytic strep in blood, 4/4 culture bottles. Repeat blood cultures so far negative. Strep pneumo? Strep viridans? Follow-up final culture results. Continue antibiotics for possible bacterial pneumonia with ceftriaxone, azithromycin. Subjectively he is improving. Hypoxia is improving. No PE on CTA. duonebs and budesonide scheuled inhalation supplemntal 02 to keep sat >92% Status: Acute Qualifiers: Laterality: right Lung location: unspecified part of lung Qualified Code(s): J18.9 - Pneumonia, unspecified organism (3) Alcohol abuse: Status: Acute (4) Streptococcal bacteremia: Alphahemolytic strep. Unclear if strep pneumo in setting of pneumonia. Strep viridans? Follow-up final cultures. Follow-up repeat cultures, so for repeat culture negative. Subjectively improving, oxygenation improving. Assess TTE. Status: Acute Additional A&P Information Hypoxia: Secondary to pneumonia: Community-acquired versus COVID-19. CTA appreciated. No pulmonary embolism but high concern for COVID-19. COVID-19 antigen negative, PCR sent out. For now until illness patient is proven to be COVID-19 PCR negative we will continue with dexamethasone 6 mg IV daily, remdesivir for a 5-day course. DuoNebs every 6 hour, budesonide twice daily. Pulmonary toilet with incentive spirometry flutter valve. D-dimer elevated. CTA negative for pulmonary embolism. Lovenox at prophylactic dose. History of alcohol abuse: Drinks half a pint of hard liquor daily. CIWA protocol. Oral folic acid and thiamine. Full code. Lovenox for DVT prophylaxis. Famotidine for PUD prophylaxis. Attestations Medical Necessity Statement*: Continue admission for assessment management of pneumonia, streptococcal bacteremia. Coding Level of Care Code Acute Information Systems Architect for Chg Fwd Diagnoses Hypoxia R09.02 Community acquired pneumonia J18.9 Laterality: right Lung location: unspecified part of lung Alcohol abuse F10.10 Streptococcal bacteremia R78.81; B95.5
[2021-06-24] VITALS (8 sets, daily range): BP systolic 142–148; BP diastolic 87–102; PULSE 65–110; RESP 17–25; TEMP 36.6–37.1; O2SAT 91–96
[2021-06-24] MEDS: remdesivir 100 MG in sodium chloride 0.9% (100 ml) 80 ML IV (05:48)
[2021-06-24 06:01] LABS: Basophils % 0.1 %; Hematocrit 31.9 % (42.0-52.0); Hemoglobin 10.5 g/dL (11.7-16.6); Lymphocytes # 1.4 10^3/uL (0.8-4.8); Lymphocytes % 12.8 %; Mean Corpuscular HGB Conc 32.9 g/dL (30.0-36.0); Mean Corpuscular Volume 106.3 fl (80-94); Mean Platelet Volume 9.5 fL (7.4-10.4); Monocytes # 0.5 10^3/uL (0.2-0.9); Monocytes % 4.6 %; Neutrophils % 81.6 %; Nucleated Red Blood Cells % 0.2 %; Platelet Count 467 10^3/cmm (130-400); Red Cell Distribution Width 13.5 % (12.1-15.1); White Blood Count 10.7 10^3/uL (4.0-10.0)
[2021-06-24 06:16] LABS: D Dimer 1.74 ug/mIFEU (0-0.59)
[2021-06-24] MEDS: dexamethasone 4 mg/mL INJ 6 MG IVP (06:19)
[2021-06-24 06:27] LABS: Alanine Aminotransferase 22 U/L (0-41); Albumin Level 3.1 g/dL (3.5-5.2); Alkaline Phosphatase 74 IU/L (40-130); Anion Gap 15.2 (5-19); Aspartate Amino Transferase 25 U/L (0-40); Blood Urea Nitrogen 16 mg/dL (6-20); C Reactive Protein 34.4 mg/L (0.0-4.9); Calcium 8.4 mg/dL (8.5-10.5); Carbon Dioxide 26 mmol/L (22-29); Chloride 102 mmol/L (98-107); Globulin 2.9 g/dL (1.3-4.6); Glomerular Filtration Rate 237.1 mL/min (90-130); Glucose 109 mg/dL (65-115); Osmolality Calculated 290 mOsm/kg (285-295); Potassium 4.2 mmol/L (3.5-5.1); Sodium 139 mmol/L (136-145); Total Bilirubin 0.2 mg/dL (0.15-1.2)
[2021-06-24 06:34] LABS: Glucose Point of Care 110 mg/dL (70-110)
--- NOTE | 2021-06-24 07:44 | PC.NURSE ---
Patient would like to go home today. Explained to patient that he will have to wait to be evaluated by MD. PCR covid still pending. Day nurse yesterday was notifiied it should be back today.
[2021-06-24] MEDS: famotidine 20 mg Tablet PO (09:03)
[2021-06-24] MEDS: benzonatate 100 mg Capsule PO (09:03)
[2021-06-24] MEDS: multivitamin therapeutic Tablet 1 TAB PO (09:03)
[2021-06-24] MEDS: zinc gluconate 50 mg Tablet PO (09:03)
[2021-06-24] MEDS: thiamine 100 mg Tablet PO (09:03)
[2021-06-24] MEDS: enoxaparin 40 mg/0.4 mL Syringe SUBCUT (09:03)
[2021-06-24] MEDS: folic acid 1 mg Tablet PO (09:03)
[2021-06-24] MEDS: cefTRIAXone 1,000 MG in sodium chloride 0.9% (plus) 50 ML 100 MG IV (09:04)
[2021-06-24 09:53] LABS: Quest SARS-CoV-2 RNA NOT DETECTED (NOT DETECTED)
[2021-06-24] MEDS: budesonide 0.5 mg/2 mL Neb INHALATION (09:53)
[2021-06-24] MEDS: ipratropium-albuterol 3 mL Neb INHALATION (09:53)
[2021-06-24 11:11] LABS: Glucose Point of Care 122 mg/dL (70-110)
[2021-06-24] MEDS: azithromycin 500 MG in sodium chloride 0.9% 250 ML 250 MG IV (12:26)
--- NOTE | 2021-06-24 12:52 | P.DS_ITS ---
Discharge Providers Date of Admission: 06/22/21 03:16 Date of Discharge: June 24, 2021 Attending Provider at Admission: Angela Carson MD Attending Provider at Discharge: Moise Reeves Diagnoses at Discharge Discharge Diagnosis (1) Hypoxia: Status: Acute (2) Community acquired pneumonia: Status: Acute Qualifiers: Laterality: right Lung location: unspecified part of lung Qualified Code(s): J18.9 - Pneumonia, unspecified organism (3) Alcohol abuse: Status: Acute (4) Streptococcal bacteremia: Status: Acute Reason for Visit Reason for Visit: Cough, shortness of breath Hospital Course Hospital Course Pleasant 40-year-old gentleman was admitted for assessment due to worsening cough, dyspnea, generalized weakness and fever over a week, with bilateral pneumonia noted on chest x-ray, new oxygen requirement up to 5 L by nasal cannula. Blood cultures collected at admission, empirically started on ceftriaxone and azithromycin, CTA was obtained, without PE, noted bilateral pneumonia possibly due to COVID-19. COVID-19 empiric treatment was started, assessment by PCR requested. Hematology PCR came back negative. His condition improved over hospitalization, he has weaned down on oxygen, today feeling comfortable on room air saturations in the low 90s. Additionally noted initially 2/4 subsequently 4/4 gram-positive cocci from initial blood culture. Blood cultures were repeated, so far without growth. Organism identified as strep pneumo. He request to be discharged home today. Overall he is doing better. Discussed with him regarding 4/4 bottles positive bacteremia, although repeat cultures so far negative. Bacteremia suspected likely secondary to translocation secondary to pneumonia, but discussed with him low possibility of separate events. He does not have any intravenous catheters, devices, and denies any intravenous drug use. He states he feels comfortable following up with primary provider to reassess for resolution, consider repeat surveillance cultures several weeks after completion of antibiotic course. TTE was obtained in the hospital. KENNETH may be considered in case there is evidence or suspicion of persistence of bacteremia. He knows to seek medical attention immediately in case of immediately in case of any concerning symptoms, with risk of seeding of infection into pockets, subsequently dissemination, risking severe infection, disability or . States he lives close by and will seek medical attention immediately in case of any concerning changes. He is reported to also have history of alcohol abuse, drinking half pint of hard liquor daily. No signs of withdrawal while in the hospital. He is encouraged to cut down or stop alcohol consumption. Prescription given for thiamine, folic acid, multivitamin. Please consider pneumococcal vaccination. Physical Exam Narrative: EXAM NARRATIVE: And let nursing staff know he is leaving hospital today no matter what. had called in stating she is picking him up at 3 PM. Const: COMMON NORMALS: no acute distress, patient oriented x3 and alert GENERAL APPEARANCE: cooperative ORIENTATION/CONSCIOUSNESS: Yes awake OTHER: In good spirits. Pleasant, conversant. HENMT: COMMON NORMALS: oropharynx normal Neck/C-Spine: COMMON NORMALS: no JVD Resp: COMMON NORMALS: normal respiratory effort and clear to auscultation bilaterally AUSCULTATION: clear to auscultation bilaterally Cardio: COMMON NORMALS: no JVD, regular rhythm, S1 normal heart sound present, S2 normal heart sound present and No murmurs present (Cardio) RHYTHM: regular rhythm HEART SOUNDS: S1 normal heart sound present and S2 normal heart sound present GI: COMMON NORMALS: Normal to inspection, nondistended, normoactive bowel sounds present, Soft to palpation and non-tender PALPATION: Yes Soft to palpation Extremity: COMMON NORMALS: no joint enlargement and no pedal edema Neuro: COMMON NORMALS: patient oriented x3 and moves all extremities SENSORIUM/ORIENTATION: Yes alert Skin: COMMON NORMALS: no rashes or lesions noted GENERAL SKIN EXAM: no rashes or lesions noted OTHER: Tattoos Discharge Data Data Completed and Pending: Completed Studies During Hospitalization Category Date Time Status CT angio chest PE protcl [id number] Rout ine Cat Scan 06/22/21 07:04 Completed XR chest 1V shahnaz ble [id number] Stat Exams 06/22/21 01:38 [place] [id number] Routin e Ultrasound 06/23/21 12:50 Completed CV. echo complete * [id number] Routine Ultrasound 06/24/21 22:33 Completed Pending at discharge Category Date Time Status Blood Culture AM LABS Lab 06/23/21 05:33 Results Complete Blood Co unt w/Auto AM LABS Lab 06/25/21 04:00 Ordered Complete Blood Co unt w/Auto AM LABS Lab 06/26/21 04:00 Ordered Comprehensive Met abolic Panel AM LA BS Lab 06/25/21 04:00 Ordered Comprehensive Met abolic Panel AM LA BS Lab 06/26/21 04:00 Ordered Sputum Culture an d Gram Stain Stat Lab 06/22/21 09:46 Uncollected Labs from last 24 hours 06/24/21 06/24/21 06/24/21 10:55 06:20 05:19 WBC RBC Hgb Hct MCV MCH MCHC RDW Plt Count MPV Neut % (Auto) Lymph % (Auto) [place] % (Auto) Eos % (Auto) Baso % (Auto) Neut # (Auto) Lymph # (Auto) [place] # (Auto) Eos # (Auto) Baso # (Auto) Nucleated RBC % (a uto) Nucleated RBCs # D-Dimer 1.74 H Sodium Potassium Chloride Carbon Dioxide Anion Gap BUN Creatinine GFR Calculation Glucose POC Glucose 122 H 110 Calculated Osmolal ity Calcium Total Bilirubin AST ALT Alkaline Phosphata se C-Reactive Protein Total Protein Albumin Globulin SARS-CoV-2 RNA (RT -PCR) 06/24/21 06/24/21 06/23/21 05:19 05:19 19:35 WBC 10.7 H RBC 3.00 L Hgb 10.5 L Hct 31.9 L MCV 106.3 H MCH 35.0 H MCHC 32.9 RDW 13.5 Plt Count 467 H MPV 9.5 Neut % (Auto) 81.6 Lymph % (Auto) 12.8 [place] % (Auto) 4.6 Eos % (Auto) 0.0 Baso % (Auto) 0.1 Neut # (Auto) 8.70 H Lymph # (Auto) 1.4 [place] # (Auto) 0.5 Eos # (Auto) 0.0 Baso # (Auto) 0.0 Nucleated RBC % (a uto) 0.2 Nucleated RBCs # 0.0 D-Dimer Sodium 139 Potassium 4.2 Chloride 102 Carbon Dioxide 26 Anion Gap 15.2 BUN 16 Creatinine 0.4 L GFR Calculation 237.1 H Glucose 109 POC Glucose 112 H Calculated Osmolal ity 290 Calcium 8.4 L Total Bilirubin 0.2 AST 25 ALT 22 Alkaline Phosphata se 74 C-Reactive Protein 34.4 H Total Protein 6.0 L Albumin 3.1 L Globulin 2.9 SARS-CoV-2 RNA (RT -PCR) 06/23/21 06/22/21 16:53 03:24 WBC RBC Hgb Hct MCV MCH MCHC RDW Plt Count MPV Neut % (Auto) Lymph % (Auto) [place] % (Auto) Eos % (Auto) Baso % (Auto) Neut # (Auto) Lymph # (Auto) [place] # (Auto) Eos # (Auto) Baso # (Auto) Nucleated RBC % (a uto) Nucleated RBCs # D-Dimer Sodium Potassium Chloride Carbon Dioxide Anion Gap BUN Creatinine GFR Calculation Glucose POC Glucose 159 H Calculated Osmolal ity Calcium Total Bilirubin AST ALT Alkaline Phosphata se C-Reactive Protein Total Protein Albumin Globulin SARS-CoV-2 RNA (RT -PCR) Not detected Vitals: Last Vital Signs Temp 98.7 F 06/24/21 11:46 Pulse 87 06/24/21 11:46 Resp 22 H 06/24/21 11:46 BP 142/87 06/24/21 11:46 Pulse Ox 94 06/24/21 11:46 Discharge Plan Discharge Patient Disposition: Home Condition: Stable Prescriptions: New folic acid 1 mg Tablet 1 mg PO DAILY Qty: 90 RF: 0 thiamine mononitrate (vit B1) [Vitamin B-1 (mononitrate)] 100 mg Tablet 100 mg PO DAILY Qty: 90 RF: 0 benzonatate 100 mg Capsule 100 mg PO TID PRN (Reason: Cough) Qty: 30 RF: 0 multivitamin with folic acid [Thera] 400 mcg Tablet 1 tab PO DAILY Qty: 90 RF: 0 levofloxacin 750 mg tablet 750 mg PO DAILY 10 Days Qty: 10 RF: 0 No Action No Known Home Medications RF: 0 Discharge Orders: Discharge Order (Routine); Ordered 06/24/21 Ordered By: Moise Reeves Referrals: Brooke Sanchez MD [Physician] - 4-7 days (Patient will need new patient appointment @ discharge to establish PCP) Discharge Diet: Advance as tolerated Discharge Activity: Increase activity as tolerated Patient Instructions: Levofloxacin (By mouth), Bacterial Pneumonia (GEN), Bacteremia (GEN) Activity Restrictions/Additional Instructions: Please follow-up with your primary doctor to ensure resolution of the pneumococcal pneumonia. Complete antibiotic course. Please discuss with your primary doctor at next appointment repeat chest x-ray. Discussed with your primary doctor consideration of repeat blood culture perhaps in about 2 weeks or more after completion of antibiotic therapy to assess for lack of recurrence of bacteremia. In case you develop symptoms like high fevers, progressive shortness of breath, chest pain, or any other concerning symptoms, please seek medical attention. Excessive alcohol consumption increases risk of pneumococcal pneumonia. Please stop alcohol consumption, limit to 2 drinks a day or less. Please discuss with your primary doctor also regarding pneumococcal vaccination. Continue thiamine, folic acid, multivitamin to reduce chances of development of alcohol related dementia. Discharge Attestations Time Spent in Discharge Care*: greater than 30 min Quality Metrics Clinical Quality Measures During this hospital stay, did patient experience: None Coding Level of Care Code Acute [facility] note Diagnoses Hypoxia R09.02 Community acquired pneumonia J18.9 Laterality: right Lung location: unspecified part of lung Alcohol abuse F10.10 Streptococcal bacteremia R78.81; B95.5
--- NOTE | 2021-06-24 22:33 | USCV_ITS ---
Michael Ortiz Age: 40 Gender: M : 1980 Exam Date: 06/24/2021 06:17 Ordering Phys: Moise Reeves MD Technologist: Livia Stapleton Exam Location: [facility] [place] Indication: STREP BACTEREMIA BP: 144 / 96 HR: 71 Rhythm: Sinus Technical Quality: Adequate MEASUREMENTS (Male / Female) Normal Values 2D ECHO LV Diastolic Diameter PLAX 4.9 cm 4.2 - 5.9 / 3.9 - 5.3 cm LV Systolic Diameter PLAX 3.7 cm IVS Diastolic Thickness 1.5 cm 0.6 - 1.0 / 0.6 - 0.9 cm IVS Systolic Thickness 1.9 cm LVPW Diastolic Thickness 1.8 cm 0.6 - 1.0 / 0.6 - 0.9 cm LVPW Systolic Thickness 2.3 cm LVOT Diameter 2.0 cm LV Ejection Fraction 2D Teich 49.4 % LV Ejection Fraction MOD 2C 41.1 % LV Ejection Fraction 2C AL 37.7 % LA Diameter 4.2 cm LA Width 3.6 cm LA Height 5.7 cm RA Width 5.1 cm RA Height 5.9 cm Aorta at Sinotubular Diameter 3.0 cm M-MODE Aortic Annulus Diameter 3.0 cm LA Ao Ratio MM 1.5 MV E Point Septal Separation 1.4 cm DOPPLER AV Peak Velocity 158.7 cm/s LVOT Peak Velocity 97.0 cm/s AV Area Cont Eq vti 2.2 cm squared AV Area Cont Eq pk 1.9 cm squared MV Area PHT 4.2 cm squared Mitral E to A Ratio 2.0 MV E' Velocity 64.5 cm/s Mitral E to MV E' Ratio 10.6 Mitral E to LV E' Lateral Ratio 10.0 Mitral E to LV E' Septal Ratio 11.4 TR Peak Velocity 263.8 cm/s TR Peak Gradient 27.8 mmHg TR Mean Velocity 258.7 cm/s TR Mean Gradient 29.9 mmHg TR Velocity Time Integral 124.0 cm TV Peak E Velocity 58.0 cm/s Right Atrial Pressure 3.0 mmHg Pulmonary Artery Systolic Pressu 30.8 mmHg PV Peak Velocity 105.0 cm/s RV Acceleration Time 0.1 s RV Ejection Time 0.3 s RV AcT/ET 0.3 FINDINGS Left Ventricle Normal left ventricular size. LV systolic function is normal with EF of 55-60%. No regional wall motion abnormalities. Normal diastolic filling pattern. Right Ventricle The right ventricle is normal in size and function. Right Atrium The right atrium is enlarged Left Atrium The left atrium is normal in size. Mitral Valve Structurally normal mitral valve without significant stenosis or prolapse. There is mild mitral regurgitation. No vegetation is seen Aortic Valve Grossly normal. No significant stenosis or regurgitation seen Tricuspid Valve Structurally normal tricuspid valve without significant stenosis. Mild tricuspid regurgitation. RVSP is 30-35mmHg Pulmonic Valve Structurally normal pulmonic valve without significant stenosis. There is no pulmonic regurgitation. Pericardium Normal pericardium without effusion. Aorta Normal ascending aorta dimension. CONCLUSIONS LV systolic function is normal with EF of 55-60% Normal diastolic function Mild mitral regurgitation Mild tricuspid regurgitation No vegetations seen No comparison studies are available Lew Rivera MD (Electronically Signed) Final Date: 24 June 2021 12:25 S
== END 2021-06-24 15:00 | disposition home or self-care (01) | DRG 195 ==
LOC: ER 02:47 → CSU 03:16
PROVIDERS: Student in an Organized Health Care Education/Training Program; Admitting Provider Student in an Organized Health Care Education/Training Program; Emergency Provider Emergency Medicine; Visit Provider Internal Medicine
DX: J18.9 Pneumonia, unspecified organism (principal); B95.3 Streptococcus pneumoniae as the cause of diseases classified elsewhere; F10.10 Alcohol abuse, uncomplicated
CPT/HCPCS: 36415; 36416; 36600; 71045; 71275; 80053; 80061; 81003; 82728; 82805; 82962; 83036; 83605; 83615; 83735; 83880; 84100; 84145; 85025; 85378; 85384; 85610; 86140; 86403; 87040; 87077; 87186; 87205; 87426; 87449; 87635; 87641; 87804; 93005; 93306; 93970; 94640; 94660; 96365; 96372; 96375; 99291; J0456; J0696; J1100; J1650; J1815; J2060; J3411; J7030; J7050; J7626; Q9967

== ENCOUNTER 2021-12-21 12:04 | Emergency (ER) | payer SELFPAY ==
[2021-12-21 12:11] VITALS: BP 131/88; PULSE 108; RESP 18; TEMP 36.6; O2SAT 96; BMI 33.4
[2021-12-21 12:16] VITALS: BP 167/114; PULSE 95; RESP 18; TEMP 37.2; O2SAT 96
--- NOTE | 2021-12-21 12:20 | CTR_ITS ---
PROCEDURE INFORMATION: Exam: CT Abdomen And Pelvis Without Contrast Exam date and time: 12/21/2021 12:56 PM Age: 41 years old Clinical indication: Abdominal pain; Additional info: Rectal pain abd pain balls TECHNIQUE: Imaging protocol: Computed tomography of the abdomen and pelvis without contrast. Radiation optimization: All CT scans at this facility use at least one of these dose optimization techniques: automated exposure control; mA and/or kV adjustment per patient size (includes targeted exams where dose is matched to clinical indication); or iterative reconstruction. COMPARISON: CT angio chest PE protcl [id number] 06/22/2021 10:38 AM RADIATION DOSE METRICS: Total DLP (mGy-cm): 1908.39 FINDINGS: Liver: Hepatomegaly, fatty liver. Gallbladder and bile ducts: Normal. No calcified stones. No ductal dilation. Pancreas: Normal. No ductal dilation. Spleen: Normal. No splenomegaly. Adrenal glands: Normal. No mass. Kidneys and ureters: Normal. No hydronephrosis. Stomach and bowel: Unremarkable. No obstruction. No mucosal thickening. Appendix: No evidence of appendicitis. Intraperitoneal space: Unremarkable. No free air. No significant fluid collection. Vasculature: Unremarkable. No abdominal aortic aneurysm. Lymph nodes: Unremarkable. No enlarged lymph nodes. Urinary bladder: Unremarkable as visualized. Reproductive: Unremarkable as visualized. Bones/joints: Chronic degenerative changes are present in the spine. There is old left pubic rami fractures. No acute bony abnormality. Soft tissues: Unremarkable. CT/CT kidney stone [id number] IMPRESSION: 1. Hepatomegaly, fatty liver. 2. No acute abnormality.
--- NOTE | 2021-12-21 12:23 | W.ED.ABDPA2 ---
HPI - Abdominal Pain General: Chief Complaint: Abdominal Pain Stated Complaint: Abd pain Time Seen by Provider: 12/21/21 12:17 Source: patient Mode of arrival: ambulatory Limitations: no limitations History of Present Illness: 41-year-old male states that over the last month he has been having abdominal pain he states he is also been having some rectal pain with some slimy different consistency with his stools. States is also had a 30 pound weight loss and was concerned about some type of rectal disease or rectal cancer states his pain is diffuse rates it a 4 out of 10 denies any vomiting. Denies fever Associated Symptoms: Denies chills, dysuria and fever(s) Review of Systems Const: Denies: fever(s), chills, body aches or change in appetite Eyes: Denies: blurry vision or eye discomfort ENMT: Denies: throat pain or dental pain Card: Denies: chest pain Resp: Denies: dyspnea GI: Reports: abdominal pain and rectal pain : Denies: dysuria Musc: Denies: neck pain or back pain Skin/Breast: Denies: rash Neuro: Denies: headache(s) Psych: Denies: depression Nav/Lymph: Denies: easy bruising All/Imm: Denies: urticaria PFSH ED PFSH: Medical History Alcohol abuse Social History Smoking and tobacco status: never smoked Physical Exam Const: COMMON NORMALS: no acute distress, patient oriented x3 and healthy appearing HENMT: COMMON NORMALS: normocephalic and atraumatic HEAD & SCALP: normocephalic and atraumatic Eye: COMMON NORMALS: Equal, round and reactive pupils present and EOMs intact bilaterally PUPIL: Yes Equal, round and reactive pupils present Neck/C-Spine: COMMON NORMALS: full ROM and supple Chest: COMMONS NORMALS: normal inspection of the chest and normal palpation of entire chest wall Resp: COMMON NORMALS: normal respiratory effort, No retractions, No use of accessory muscles and clear to auscultation bilaterally AUSCULTATION: clear to auscultation bilaterally Cardio: COMMON NORMALS: regular rate, regular rhythm and No murmurs present (Cardio) RATE: regular rate RHYTHM: regular rhythm GI: COMMON NORMALS: Normal to inspection, nondistended, normoactive bowel sounds present, Soft to palpation, non-tender and no masses PALPATION: Yes Soft to palpation : OTHER: Patient does have a hemorrhoid that is tender to touch no rectal bleeding Extremity: COMMON NORMALS: normal to inspection and full ROM Neuro: COMMON NORMALS: patient oriented x3, moves all extremities and no focal motor deficits Psych: COMMON NORMALS: mental status grossly normal, Normal thought process present and cooperative THOUGHT PROCESS: Normal thought process present Skin: COMMON NORMALS: no rashes or lesions noted and no wounds GENERAL SKIN EXAM: no rashes or lesions noted Course Vital Signs: Vital signs: Vital Signs Temperature 98.9 F 12/21/21 12:16 Pulse Rate 95 12/21/21 12:16 Respiratory Rate 18 12/21/21 12:34 Blood Pressure 167/114 12/21/21 12:16 Pulse Oximetry 96 12/21/21 12:34 MDM - Abdominal Pain Medical Decision Making Patient presents here with abdominal pain he is a chronic alcoholic does have enlarged liver could be causing some of his pain ultrasound showed no signs of gallstones or biliary duct dilatation we will get him follow-up he is feeling improved here he stable for discharge return if worsening he understands agrees to plan. Lab Data : 12/21/21 12:30 12/21/21 13:30 Labs/Radiology: Radiology Impressions Abdomen/Pelvis CT 12/21/21 12:20 IMPRESSION: 1. Hepatomegaly, fatty liver. 2. No acute abnormality. Laboratory Results WBC 4.8 10^3/uL (4.0-10.0) 12/21/21 12:30 RBC 3.18 10^6/uL (4.1-5.3) L 12/21/21 12:30 Hgb 12.3 g/dL (11.7-16.6) 12/21/21 12:30 Hct 33.9 % (42.0-52.0) L 12/21/21 12:30 MCV 106.6 fl (80-94) H 12/21/21 12:30 MCH 38.7 pg (28.0-34.0) H 12/21/21 12:30 MCHC 36.3 g/dL (30.0-36.0) H 12/21/21 12:30 RDW 19.9 % (12.1-15.1) H 12/21/21 12:30 Plt Count 85 10^3/cmm (130-400) L 12/21/21 12:30 MPV 12.0 fL (7.4-10.4) H 12/21/21 12:30 Neut % (Auto) 62.4 % 12/21/21 12:30 Lymph % (Auto) 26.7 % 12/21/21 12:30 [place] % (Auto) 8.6 % 12/21/21 12:30 Eos % (Auto) 0.6 % 12/21/21 12:30 Baso % (Auto) 1.3 % 12/21/21 12:30 Neut # (Auto) 2.96 10^3/uL (1.8-7.7) 12/21/21 12:30 Lymph # (Auto) 1.3 10^3/uL (0.8-4.8) 12/21/21 12:30 [place] # (Auto) 0.4 10^3/uL (0.2-0.9) 12/21/21 12:30 Eos # (Auto) 0.0 10^3/uL (0.0-0.8) 12/21/21 12:30 Baso # (Auto) 0.1 10^3/uL (0.0-0.1) 12/21/21 12:30 Nucleated RBC % (auto) 0.4 % 12/21/21 12:30 Nucleated RBCs # 0.0 /100WBC 12/21/21 12:30 Sodium 140 mmol/L (136-145) 12/21/21 13:30 Potassium 3.3 mmol/L (3.5-5.1) L 12/21/21 13:30 Chloride 100 mmol/L (98-107) 12/21/21 13:30 Carbon Dioxide 25 mmol/L (22-29) 12/21/21 13:30 Anion Gap 18.3 (5-19) 12/21/21 13:30 BUN 3 mg/dL (6-20) L 12/21/21 13:30 Creatinine 0.4 mg/dL (0.7-1.2) L 12/21/21 13:30 GFR Calculation 235.9 mL/min (90-130) H 12/21/21 13:30 Glucose 96 mg/dL (65-115) 12/21/21 13:30 Calculated Osmolality 286 mOsm/kg (285-295) 12/21/21 13:30 Calcium 7.1 mg/dL (8.5-10.5) L 12/21/21 13:30 Total Bilirubin 3.0 mg/dL (0.15-1.2) H 12/21/21 13:30 AST 572 U/L (0-40) H 12/21/21 13:30 ALT 108 U/L (0-41) H 12/21/21 13:30 Alkaline Phosphatase 288 IU/L (40-130) H 12/21/21 13:30 Total Protein 5.9 g/dL (6.6-8.7) L 12/21/21 13:30 Albumin 3.1 g/dL (3.5-5.2) L 12/21/21 13:30 Globulin 2.8 g/dL (1.3-4.6) 12/21/21 13:30 Lipase 125 U/L (13-60) H 12/21/21 13:30 Urine Color Dark yellow (Yellow) 12/21/21 13:00 Urine Appearance Clear (CLEAR) 12/21/21 13:00 Urine pH 6.5 (5-7) 12/21/21 13:00 Ur Specific [place] 1.010 (1.005-1.030) 12/21/21 13:00 Urine Protein Neg (Negative) 12/21/21 13:00 Urine Glucose (UA) Norm (Normal) 12/21/21 13:00 Urine Ketones Negative (Negative) 12/21/21 13:00 Urine Blood Neg (Negative) 12/21/21 13:00 Urine Nitrate Negative (Negative) 12/21/21 13:00 Urine Bilirubin 1+ (Negative) H 12/21/21 13:00 Urine Urobilinogen 1 mg/dL (Negative) H 12/21/21 13:00 Ur Leukocyte Esterase Negative (Negative) 12/21/21 13:00 Discharge Plan Discharge Patient Disposition: Home Clinical Impression: Fatty liver Abdominal pain Qualifiers: Abdominal location: generalized Qualified Code(s): R10.84 - Generalized abdominal pain Condition: Stable Prescriptions: New docusate sodium 100 mg capsule 100 mg PO BID Qty: 20 0RF No Action benzonatate 100 mg capsule 100 mg PO TID PRN (Reason: Cough) Qty: 30 0RF folic acid 1 mg Tablet 1 mg PO DAILY Qty: 90 0RF Vitamin B-1 (mononitrate) 100 mg Tablet 100 mg PO DAILY Qty: 90 0RF Thera 400 mcg Tablet 1 tab PO DAILY Qty: 90 0RF Discharge Orders: Discharge ED (Routine); Ordered 12/21/21 Ordered By: Hans Jalloh Referrals: Caleb Gant MD [Physician] - 1-3 days Discharge Diet: Advance as tolerated Discharge Activity: Resume usual activity Patient Instructions: Abdominal Pain (ED) Coding Level of Care Code ED Aoc Plans Intelligence Officer for Chg Fwd Exam Comprehensive
[2021-12-21] MEDS: sodium chloride 0.9% 1,000 ML 999 ML IV (12:33)
[2021-12-21 12:34] VITALS: RESP 18; O2SAT 96
[2021-12-21] MEDS: morphine 4 mg/mL SDV 1 mL IVP (12:34)
[2021-12-21] MEDS: ondansetron 2 mg/ML SDV 2 mL 4 MG IVP (12:34)
[2021-12-21 13:18] LABS: Add Urine Microscopic? NO; Charge for UA Resulting for Rev
[2021-12-21 13:25] LABS: Basophils # 0.1 10^3/uL (0.0-0.1); Basophils % 1.3 %; Eosinophils % 0.6 %; Hematocrit 33.9 % (42.0-52.0); Hemoglobin 12.3 g/dL (11.7-16.6); Lymphocytes # 1.3 10^3/uL (0.8-4.8); Lymphocytes % 26.7 %; Mean Corpuscular HGB Conc 36.3 g/dL (30.0-36.0); Mean Corpuscular Hemoglobin 38.7 pg (28.0-34.0); Mean Corpuscular Volume 106.6 fl (80-94); Monocytes # 0.4 10^3/uL (0.2-0.9); Monocytes % 8.6 %; Neutrophils # 2.96 10^3/uL (1.8-7.7); Neutrophils % 62.4 %; Nucleated Red Blood Cells % 0.4 %; Platelet Count 85 10^3/cmm (130-400); Red Blood Count 3.18 10^6/uL (4.1-5.3); Red Cell Distribution Width 19.9 % (12.1-15.1); White Blood Count 4.8 10^3/uL (4.0-10.0)
[2021-12-21 13:26] LABS: Bilirubin Urine 1+ (Negative); Blood Urine Neg (Negative); Glucose Urine UA Norm (Normal); Ketones Urine Negative (Negative); Leukocyte Esterase Urine Negative (Negative); Nitrate Urine Negative (Negative); Protein Urine Neg (Negative); Urine Appearance Clear (CLEAR); Urine Color Dark Yellow (Yellow); Urobilinogen Urine 1 mg/dL (Negative); pH Urine 6.5 (5-7)
[2021-12-21 14:01] LABS: Alanine Aminotransferase 108 U/L (0-41); Albumin Level 3.1 g/dL (3.5-5.2); Alkaline Phosphatase 288 IU/L (40-130); Anion Gap 18.3 (5-19); Aspartate Amino Transferase 572 U/L (0-40); Blood Urea Nitrogen 3 mg/dL (6-20); Calcium 7.1 mg/dL (8.5-10.5); Carbon Dioxide 25 mmol/L (22-29); Chloride 100 mmol/L (98-107); Globulin 2.8 g/dL (1.3-4.6); Glomerular Filtration Rate 235.9 mL/min (90-130); Glucose 96 mg/dL (65-115); Lipase 125 U/L (13-60); Osmolality Calculated 286 mOsm/kg (285-295); Potassium 3.3 mmol/L (3.5-5.1); Sodium 140 mmol/L (136-145); Total Protein 5.9 g/dL (6.6-8.7)
--- NOTE | 2021-12-21 14:14 | USR_ITS ---
PROCEDURE INFORMATION: Exam: US Abdomen, Limited; Right Upper Quadrant Exam date and time: 12/21/2021 2:42 PM Age: 41 years old Clinical indication: Abdominal pain; Acute; Additional info: Abd pain TECHNIQUE: Imaging protocol: US abdomen. Real time ultrasound with image documentation. Limited exam focused on the right upper quadrant. COMPARISON: CT kidney stone [id number] 12/21/2021 12:56 PM FINDINGS: Liver: Normal. No masses. Liver span 25 cm consistent with hepatomegaly. There is diffuse increased hepatic echogenicity consistent with steatosis. Gallbladder: Normal. No gallstones. GB wall 1.5 mm Biliary ducts: Normal. No stones. No dilation. CBD 6.2 mm Pancreas: Not well visualized due to bowel gas Right kidney: Normal. No mass. No hydronephrosis. Right kidney measures 11 cm x 4 0.8 cm US/US gall bladder [id number] IMPRESSION: 1. Diffuse hepatic steatosis and hepatomegaly 2. Otherwise negative sonogram of the abdomen
[2021-12-21 15:18] VITALS: BP 148/81; PULSE 78; RESP 18; TEMP 36.8; O2SAT 93
--- NOTE | 2021-12-24 18:42 | DCPLANNER ---
Addendum entered by Anita Bearden 01/18/22 06:11: Patient had a follow up appointment scheduled for 01.13.[address] Gant - patient did not attend appointment. Addendum entered by Anita Bearden 12/28/21 09:15: Patient has a follow up appointment scheduled for Thursday, January 13, 2022 at 2:[address] Gant. Clinic will call patient with appointment information. Original Note: dot compliance manager had message to schedule a follow up appointment for patient with Dr. Gant. dot compliance manager sent patients information to the front office staff. Patients information will be printed and reviewed. Clinic will call patient with appointment information.
== END 2021-12-21 15:19 | disposition home or self-care (01) ==
PROVIDERS: Emergency Provider Emergency Medicine
DX: K70.0 Alcoholic fatty liver (principal); R10.84 Generalized abdominal pain; F10.20 Alcohol dependence, uncomplicated
CPT/HCPCS: 36415; 74176; 76705; 80053; 81003; 83690; 85025; 96361; 96374; 96375; 99284; J2270; J2405; J7030

== ENCOUNTER 2022-03-19 15:26 | Emergency (ER) | payer MEDICAID, SELFPAY ==
[2022-03-19 15:41] VITALS: BP 134/84; PULSE 128; RESP 22; TEMP 36.7; O2SAT 95; BMI 32.7
--- NOTE | 2022-03-19 16:02 | ECG_ITS ---
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 Measurements Intervals [place] Rate: 103 P: 33 OR: 131 QRS: 75 QRSD: 94 T: 49 QT: 356 QTc: 468 Interpretive Statements SINUS TACHYCARDIA ABNORMAL RHYTHM ECG Compared to ECG 06/22/2021 01:54:09 No significant changes Electronically Signed On 03-19-2022 22:47:09 CDT by Kylah Viera M.D. [email or web address]
--- NOTE | 2022-03-19 16:03 | ED_ITS ---
HPI - General Adult General: Chief complaint: Abdominal Pain Stated complaint: weight loss/abd pain Time Seen by Provider: 03/19/22 16:02 History of Present Illness: Patient is a 41-year-old male with history of chronic alcohol dependence (last drink was earlier today), hepatitis C currently on treatment, alcohol cirrhosis (last paracentesis was 3 weeks ago) presenting to the emergency room with complaints of lower abdominal pain and blood in stool for the last 3 days. Patient denies any gross melena or hematemesis. Patient tells me that for the last few days, patient has noticed streaks of bright blood in the stool. Patient also noticed the stool was very mucousy. Patient also has had dysuria symptoms for the last 3 weeks with complaints of lower abdominal pain. Patient denies any hematuria or polyuria. Patient denies any flank pain, nausea/vomiting or diffuse abdominal pain. Patient notes associated chest pain shortness breath or palpitation. Patient has no other sick Contact at home. Patient has a chronic cough for the last month. Patient denies any fever/c hills, or active chest pain. Onset: 3 days ago Duration:3 days Location:home Severity:moderate Associated symptoms: Deny chest pain, dyspnea, nausea, rash, palpitations or vomiting Review of Systems Const: Denies: fever(s) or chills Eyes: Denies: change in vision ENMT: Denies: mouth pain Card: Denies: chest pain or palpitations Resp: Denies: dyspnea or non-productive cough GI: Reports: abdominal pain (+lower abd pain) and other (+blood in stool x 3 days); Denies: nausea, vomiting or diarrhea : Reports: dysuria (x 1 week) Musc: Denies: extremity pain Skin/Breast: Denies: rash or new lesions Neuro: Denies: weakness in extremities Psych: Reports: other (Normal mood) Nav/Lymph: Denies: easy bruising PFSH ED PFSH: Medical History Alcohol abuse Cirrhosis Hepatitis C Social History Smoking and tobacco status: never smoked Alcohol intake: current Substance/Drug Use: never Physical Exam Const: COMMON NORMALS: alert HENMT: COMMON NORMALS: atraumatic HEAD & SCALP: atraumatic MOUTH: moist mucous membranes not abnormal Eye: COMMON NORMALS: EOMs intact bilaterally and conjunctivae normal CONJUNCTIVA: Yes conjunctivae normal Neck/C-Spine: COMMON NORMALS: full ROM and supple Resp: COMMON NORMALS: normal respiratory effort and clear to auscultation bilaterally AUSCULTATION: clear to auscultation bilaterally Cardio: COMMON NORMALS: regular rate RATE: regular rate GI: COMMON NORMALS: Soft to palpation PALPATION: Yes Soft to palpation OTHER: +abdominal distension, +mild suprapubic TTP. NO guarding rebound, guarding, rigidity. No CVA tenderness to percussion. Neg [place]/Neg McBurney's point tenderness, no suprabupic tenderness to palpation. Extremity: COMMON NORMALS: full ROM Neuro: SENSORIUM/ORIENTATION: Yes alert MOTOR EXAM: No Abnormal motor strength present and Other motor observations present (no focal motor deficits) Psych: COMMON NORMALS: speech normal SPEECH: Yes normal speech MOOD & AFFECT: Yes euthymic mood Course Vital Signs: Vital signs: Vital Signs Temperature 98.1 F 03/19/22 15:41 Pulse Rate 98 03/19/22 17:39 Respiratory Rate 22 H 03/19/22 15:41 Blood Pressure 113/71 03/19/22 17:39 Pulse Oximetry 97 03/19/22 17:39 Oxygen Delivery Me thod 03/19/22 16:56 MDM - General Adult Medical Decision Making 41-year-old male with a history of chronic alcohol dependence, alcoholic cirrhosis, and hepatitis C presenting to the emergency room for evaluation of lower abdominal pain and blood in stool. On physical exam, patient is did not have any gross hematuria or melena. He had mild suprapubic tenderness palpation without any guarding rebound tenderness. No white count. Hemoglobin 13.5 today. Rest of lab within normal limit. UA did not show any signs of UTI. CT of pelvis negative for any acute findings. At the present time, given the fact the patient has no gross melena or hematochezia, I have discussed case with Dr. Coburn who agrees to have the patient follow-up closely outpatient for further evaluation of blood in the stool. Patient has no signs of variceal bleeding or gross melena. I have given patient follow up with our employment case manager to be seen by our outpatient by Dr. Coburn. Patient aware of a call from our employment case manager to schedule for appointment(s) and verbalizes understanding of the importance of following up. Patient is given strict return precaution for any signs of heavy rectal bleeding, melena, or any signs of hematemesis. Rx Maalox/pepcid PRN dyspepsia, and zofran PRN nausea/vomiting Disposition: Discharge. Patient counseled regarding diagnostic impression, treatment plan. Patient given ED strict return precautions to return for continuation, worsening, or development of new symptoms. Instructed to f/u w/ PCP regarding symptoms today. Patient verbalized understanding. Lab Data : 03/19/22 16:18 03/19/22 17:13 Radiology Impressions Abdomen/Pelvis CT 03/19/22 16:26 IMPRESSION: 1. Negative for focal acute inflammatory process in the abdomen or pelvis. 2. Hepatic steatosis. 3. Hepatomegaly. 4. Moderate to large amount of ascites in the abdomen and pelvis. 5. Diffuse colonic wall thickening, likely related to underlying ascites. Laboratory Results WBC 8.8 10^3/uL (4.0-10.0) 03/19/22 16:18 RBC 3.66 10^6/uL (4.1-5.3) L 03/19/22 16:18 Hgb 13.5 g/dL (11.7-16.6) 03/19/22 16:18 Hct 37.8 % (42.0-52.0) L 03/19/22 16:18 MCV 103.3 fl (80-94) H 03/19/22 16:18 MCH 36.9 pg (28.0-34.0) H 03/19/22 16:18 MCHC 35.7 g/dL (30.0-36.0) 03/19/22 16:18 RDW 13.1 % (12.1-15.1) 03/19/22 16:18 Plt Count 86 10^3/cmm (130-400) L 03/19/22 16:18 MPV 11.9 fL (7.4-10.4) H 03/19/22 16:18 Neut % (Auto) 64.1 % 03/19/22 16:18 Lymph % (Auto) 27.8 % 03/19/22 16:18 [place] % (Auto) 7.0 % 03/19/22 16:18 Eos % (Auto) 0.3 % 03/19/22 16:18 Baso % (Auto) 0.6 % 03/19/22 16:18 Neut # (Auto) 5.63 10^3/uL (1.8-7.7) 03/19/22 16:18 Lymph # (Auto) 2.5 10^3/uL (0.8-4.8) 03/19/22 16:18 [place] # (Auto) 0.6 10^3/uL (0.2-0.9) 03/19/22 16:18 Eos # (Auto) 0.0 10^3/uL (0.0-0.8) 03/19/22 16:18 Baso # (Auto) 0.1 10^3/uL (0.0-0.1) 03/19/22 16:18 Nucleated RBC % (auto) 0 % 03/19/22 16:18 Nucleated RBCs # 0.0 /100WBC 03/19/22 16:18 Sodium 141 mmol/L (136-145) 03/19/22 17:13 Potassium 4.0 mmol/L (3.5-5.1) 03/19/22 17:13 Chloride 102 mmol/L (98-107) 03/19/22 17:13 Carbon Dioxide 24 mmol/L (22-29) 03/19/22 17:13 Anion Gap 19.0 (5-19) 03/19/22 17:13 BUN 5 mg/dL (6-20) L 03/19/22 17:13 Creatinine 0.5 mg/dL (0.7-1.2) L 03/19/22 17:13 GFR Calculation 182.3 mL/min (90-130) H 03/19/22 17:13 Glucose 97 mg/dL (65-115) 03/19/22 17:13 Calculated Osmolality 289 mOsm/kg (285-295) 03/19/22 17:13 Calcium 8.2 mg/dL (8.5-10.5) L 03/19/22 17:13 Total Bilirubin 1.4 mg/dL (0.15-1.2) H 03/19/22 17:13 AST 238 U/L (0-40) H 03/19/22 17:13 ALT 53 U/L (0-41) H 03/19/22 17:13 Alkaline Phosphatase 231 U/L (40-130) H 03/19/22 17:13 Troponin T Gen 5 ng/L 6 ng/L (0-15) 03/19/22 16:18 Total Protein 6.5 g/dL (6.6-8.7) L 03/19/22 17:13 Albumin 3.2 g/dL (3.5-5.2) L 03/19/22 17:13 Globulin 3.3 g/dL (1.3-4.6) 03/19/22 17:13 Lipase 61 U/L (13-60) H 03/19/22 17:13 Urine Color Dark yellow (Yellow) 03/19/22 17:59 Urine Appearance Clear (CLEAR) 03/19/22 17:59 Urine pH 6 (5-7) 03/19/22 17:59 Ur Specific [place] 1.020 (1.005-1.030) 03/19/22 17:59 Urine Protein 1+ (Negative) H 03/19/22 17:59 Urine Glucose (UA) Norm (Normal) 03/19/22 17:59 Urine Ketones 1+ (Negative) H 03/19/22 17:59 Urine Blood Neg (Negative) 03/19/22 17:59 Urine Nitrate Negative (Negative) 03/19/22 17:59 Urine Bilirubin 1+ (Negative) H 03/19/22 17:59 Urine Urobilinogen 4 mg/dL (Negative) H 03/19/22 17:59 Ur Leukocyte Esterase Negative (Negative) 18 17:59 Urine RBC 0-4 /hpf (0-2) H 03/19/22 17:59 Urine WBC 0-4 /hpf (0-5) H 03/19/22 17:59 Ur Squamous Epith Cells 0-4 /hpf (0-5) H 03/19/22 17:59 Amorphous Sediment Not Reportable 03/19/22 17:59 Urine Bacteria Trace /hpf (NONE) 03/19/22 17:59 Hyaline Casts 10-15 /lpf H 03/19/22 17:59 Imaging Data Other Imaging: Radiologist's impression: [address] [address] [address] Scan Report Signed Patient: Michael Ortiz Unit #: [id number] : 1980 Age/Sex: 41 / M ADM Date: 03/19/22 Loc: ER Room/Bed: Attending Dr: Ordering Provider/Ordering MD: Kacy Kaye MD Date of Service: 03/19/22 Procedure(s): CT abdomen pelvis w con* [id number] Accession Number(s): [id number] Report Number: [id number] PROCEDURE INFORMATION: Exam: CT Abdomen And Pelvis With Contrast Exam date and time: 03/19/2022 5:22 PM Age: 41 years old Clinical indication: Abdominal pain; Generalized; Additional info: Abd pain TECHNIQUE: Imaging protocol: Computed tomography of the abdomen and pelvis with contrast. Radiation optimization: All CT scans at this facility use at least one of these dose optimization techniques: automated exposure control; mA and/or kV adjustment per patient size (includes targeted exams where dose is matched to clinical indication); or iterative reconstruction. Contrast material: OMNIPAQUE 350; Contrast volume: 80 ml; Contrast route: INTRAVENOUS (IV);? COMPARISON: CT kidney stone [id number] 12/21/2021 12:56 PM RADIATION DOSE METRICS: Total DLP (mGy-cm): 1085.96 FINDINGS: Liver: Hepatic steatosis. Hepatomegaly. Gallbladder and bile ducts: Normal. No calcified stones. No ductal dilation. Pancreas: Normal. No ductal dilation. Spleen: Normal. No splenomegaly. Adrenal glands: Normal. No mass. Kidneys and ureters: Normal. No hydronephrosis. Stomach and bowel: Diffuse colonic wall thickening, likely related to underlying ascites. Appendix: No evidence of appendicitis. Intraperitoneal space: Moderate to large amount of ascites in the abdomen and pelvis. Vasculature: Unremarkable. No abdominal aortic aneurysm. Lymph nodes: Unremarkable. No enlarged lymph nodes. Urinary bladder: Unremarkable as visualized. Reproductive: Unremarkable as visualized. Bones/joints: Unremarkable. No acute fracture. Soft tissues: Unremarkable. CT/CT abdomen pelvis w con* [id number] IMPRESSION: 1. Negative for focal acute inflammatory process in the abdomen or pelvis. 2. Hepatic steatosis. 3. Hepatomegaly. 4. Moderate to large amount of ascites in the abdomen and pelvis. 5. Diffuse colonic wall thickening, likely related to underlying ascites. ? Dictated By: Manohar Burch MD Signed By: Manohar Burch MD Signed Date/Time: 03/19/221740 DD/ 21 Discharge Plan Discharge Condition: Stable Prescriptions: No Action Tylenol Ex Str Rapid Release 500 mg Tablet 1,000 mg PO Q6H PRN (Reason: Pain) Coding Level of Care Code ED Medical Economics Consultant for Odalis Fwd Exam Comprehensive
[2022-03-19] MEDS: sodium chloride 0.9% 1,000 ML 999 ML IV (16:17)
[2022-03-19 16:26] VITALS: BP 131/90; PULSE 102; O2SAT 96
--- NOTE | 2022-03-19 16:26 | CTR_ITS ---
PROCEDURE INFORMATION: Exam: CT Abdomen And Pelvis With Contrast Exam date and time: 03/19/2022 5:22 PM Age: 41 years old Clinical indication: Abdominal pain; Generalized; Additional info: Abd pain TECHNIQUE: Imaging protocol: Computed tomography of the abdomen and pelvis with contrast. Radiation optimization: All CT scans at this facility use at least one of these dose optimization techniques: automated exposure control; mA and/or kV adjustment per patient size (includes targeted exams where dose is matched to clinical indication); or iterative reconstruction. Contrast material: OMNIPAQUE 350; Contrast volume: 80 ml; Contrast route: INTRAVENOUS (IV); COMPARISON: CT kidney stone [id number] 12/21/2021 12:56 PM RADIATION DOSE METRICS: Total DLP (mGy-cm): 1085.96 FINDINGS: Liver: Hepatic steatosis. Hepatomegaly. Gallbladder and bile ducts: Normal. No calcified stones. No ductal dilation. Pancreas: Normal. No ductal dilation. Spleen: Normal. No splenomegaly. Adrenal glands: Normal. No mass. Kidneys and ureters: Normal. No hydronephrosis. Stomach and bowel: Diffuse colonic wall thickening, likely related to underlying ascites. Appendix: No evidence of appendicitis. Intraperitoneal space: Moderate to large amount of ascites in the abdomen and pelvis. Vasculature: Unremarkable. No abdominal aortic aneurysm. Lymph nodes: Unremarkable. No enlarged lymph nodes. Urinary bladder: Unremarkable as visualized. Reproductive: Unremarkable as visualized. Bones/joints: Unremarkable. No acute fracture. Soft tissues: Unremarkable. CT/CT abdomen pelvis w con* [id number] IMPRESSION: 1. Negative for focal acute inflammatory process in the abdomen or pelvis. 2. Hepatic steatosis. 3. Hepatomegaly. 4. Moderate to large amount of ascites in the abdomen and pelvis. 5. Diffuse colonic wall thickening, likely related to underlying ascites.
[2022-03-19 16:40] LABS: Basophils # 0.1 10^3/uL (0.0-0.1); Basophils % 0.6 %; Eosinophils % 0.3 %; Hematocrit 37.8 % (42.0-52.0); Hemoglobin 13.5 g/dL (11.7-16.6); Lymphocytes # 2.5 10^3/uL (0.8-4.8); Lymphocytes % 27.8 %; Mean Corpuscular HGB Conc 35.7 g/dL (30.0-36.0); Mean Corpuscular Hemoglobin 36.9 pg (28.0-34.0); Mean Corpuscular Volume 103.3 fl (80-94); Mean Platelet Volume 11.9 fL (7.4-10.4); Monocytes # 0.6 10^3/uL (0.2-0.9); Neutrophils # 5.63 10^3/uL (1.8-7.7); Neutrophils % 64.1 %; Nucleated Red Blood Cells % 0 %; Platelet Count 86 10^3/cmm (130-400); Red Blood Count 3.66 10^6/uL (4.1-5.3); Red Cell Distribution Width 13.1 % (12.1-15.1); White Blood Count 8.8 10^3/uL (4.0-10.0)
[2022-03-19 16:56] VITALS: BP 117/78; PULSE 98; O2SAT 94
--- NOTE | 2022-03-19 16:57 | PC.PHAR ---
pt states takes no rx or otc meds bedsides tylenlol prn
[2022-03-19 17:17] LABS: Troponin T (5th) Once 6 ng/L (0-15)
[2022-03-19] MEDS: iohexol 350 mg/mL 100 mL Btl IV (17:24)
--- NOTE | 2022-03-19 17:31 | PC.NURSE ---
Pt reports diffuse abdominal pain and swelling abdomen. Reports recent diagnosis of hepatitis C and with a recent visit his abdomen needed to be drained. Pt also reports blood in his stool. Pt reports frequent alcohol use but decreased due to abdominal pain. Pt calm and cooperative,lung sounds clear bilat, bowel sounds present, abdomen rounded
[2022-03-19 17:39] VITALS: BP 113/71; PULSE 98; O2SAT 97
[2022-03-19 17:55] LABS: Alanine Aminotransferase 53 U/L (0-41); Albumin Level 3.2 g/dL (3.5-5.2); Alkaline Phosphatase 231 U/L (40-130); Aspartate Amino Transferase 238 U/L (0-40); Blood Urea Nitrogen 5 mg/dL (6-20); Calcium 8.2 mg/dL (8.5-10.5); Carbon Dioxide 24 mmol/L (22-29); Chloride 102 mmol/L (98-107); Globulin 3.3 g/dL (1.3-4.6); Glomerular Filtration Rate 182.3 mL/min (90-130); Glucose 97 mg/dL (65-115); Lipase 61 U/L (13-60); Osmolality Calculated 289 mOsm/kg (285-295); Sodium 141 mmol/L (136-145); Total Bilirubin 1.4 mg/dL (0.15-1.2); Total Protein 6.5 g/dL (6.6-8.7)
[2022-03-19 18:06] LABS: Add Urine Microscopic? YES; Bilirubin Urine 1+ (Negative); Blood Urine Neg (Negative); Glucose Urine UA Norm (Normal); Ketones Urine 1+ (Negative); Leukocyte Esterase Urine Negative (Negative); Nitrate Urine Negative (Negative); Protein Urine 1+ (Negative); Urine Appearance Clear (CLEAR); Urine Color Dark Yellow (Yellow); Urobilinogen Urine 4 mg/dL (Negative); pH Urine 6 (5-7)
[2022-03-19 18:08] LABS: Add Urine Culture? No; Bacteria Urine TRACE /hpf; RBC Urine 0-4 /hpf (0-2); Squamous Epithelial Cell Urine 0-4 /hpf (0-5); WBC Urine 0-4 /hpf (0-5)
[2022-03-19 18:15] VITALS: BP 122/87; PULSE 100; O2SAT 95
[2022-03-19] MEDS: lidocaine 2% viscous 15 ML, aluminum-mag hydrox-simethicon 30 ML, sucralfate oral liq 1 GM PO (18:34)
--- NOTE | 2022-03-20 11:51 | DCPLANNER ---
Addendum entered by Anita Bearden 04/02/22 08:34: Patient had a follow up appointment scheduled for 04.01.[address] Gant at Internal Medicine - patient did not attend appointment. Original Note: manager environmental health and safety had message to schedule a follow up appointment for patient with internal medicine with Dr. Gant. manager environmental health and safety sent patients information to the front office staff at internal medicine. Patients information will be printed and reviewed. Clinic will call patient with appointment information.
== END 2022-03-19 18:44 | disposition home or self-care (01) ==
PROVIDERS: Emergency Provider Emergency Medicine
DX: R10.9 Unspecified abdominal pain (principal); Z86.19 Personal history of other infectious and parasitic diseases
CPT/HCPCS: 36415; 74177; 80053; 81001; 83690; 84484; 85025; 93005; 99285; J7030; Q9967

== ENCOUNTER 2022-04-09 12:56 | Emergency (ER) | payer MEDICAID, SELFPAY ==
[2022-04-09 12:58] VITALS: BP 139/102; PULSE 110; RESP 23; TEMP 36.4; O2SAT 96; BMI 31.5
--- NOTE | 2022-04-09 13:00 | ED_ITS ---
HPI - Chest Pain General: Chief Complaint: General Medical Stated Complaint: cp resloved Time Seen by Provider: 04/09/22 13:00 History of Present Illness: Mr. Ortiz is a 41-year-old gentleman with significant past medical history of alcoholic liver cirrhosis, history of hepatitis C who presents to the emergency department due to generalized illness. He reports typically still consuming alcohol with last drink about 5 days ago. He has been feeling generally progressively worse and tried a liquid IV oral solution earlier today. Shortly after he began having racing heart, chest pain, shakiness, tingling. Additionally endorses chronic aching and occasional sharp pain in the right upper quadrant of his abdomen. He does feel more swollen and has had decreased urine output, he has noticed change in bowel movements with more liquid. Overall course of symptoms has worsened. Intensity is moderate to severe. Chest pain is currently resolved. No other specific changes in health, exacerbating, or alleviating factors identified. Onset (ago): hour(s) Timing of current episode: now resolved Prior episodes: No Onset: during rest Pain location: left chest Severity: moderate Quality: heaviness and sharp Associated symptoms: Reports other Treatment prior to arrival: aspirin and nitroglycerin Review of Systems General: Reports: 10 or more systems reviewed and unremarkable except in HPI and below PFSH ED PFSH: Medical History Alcohol abuse Cirrhosis Hepatitis C Social History Smoking and tobacco status: current every day smoker (1/2 PPD) cigarettes Packs smoked per day: 0.5 Years cigarettes smoked: 20 Second hand smoke exposure: Yes Alcohol intake: former Year of sobriety/quit date alcohol: 10 d Former alcohol use details: fifth of whiskey/day Last alcohol use date: 04/05/22 Last substance use date: 04/13/22 Household members: spouse and family Marital status: service: No Current occupational status: disabled Current gender identity: Male Special chase needs: No Physical Exam Const: COMMON NORMALS: alert GENERAL APPEARANCE: cooperative, well develo ped and ill appearing (Somewhat, chronically) HENMT: COMMON NORMALS: normocephalic and atraumatic HEAD & SCALP: normoce phalic and atraumatic Eye: COMMON NORMALS: conjunctivae normal CONJUNCTIVA: Yes conjunctivae normal SCLERA: sclerae normal Neck/C-Spine: COMMON NORMALS: supple GENERAL: Yes trachea midline Resp: COMMON NORMALS: normal respiratory effort EFFORT & INSPECTION: Yes able to speak in complete sentences Cardio: COMMON NORMALS: regular rhythm RATE: tachycardic RHYTHM: regular rhythm GI: COMMON NORMALS: Soft to palpation PALPATION: Yes Soft to palpation, No Tenderness to palpation present (GI), No Guarding due to palpation present (GI), No Rigid due to palpation and Yes Hepatomegaly present Extremity: GENERAL: Yes normal exam except as noted and No edema Neuro: COMMON NORMALS: moves all extremities SENSORIUM/ORIENTATION: Yes alert and No Orientation impaired Psych: COMMON NORMALS: mental status grossly normal and Normal thought process present THOUGHT PROCESS: Normal thought process present Course ED course: - Patient was seen and evaluated by me at bedside - Patient placed on cardiac monitors, IV access obtained - Initial evaluation notable for exam as above. EKG notable for sinus rhythm with nonspecific ST segment abnormalities, no STEMI. - Labs and xrays personally interpreted by me - Fluids, analgesia given - Labs notable for no leukocytosis, normal hemoglobin, near baseline platelet count. Metabolic panel with mild evidence of dehydration. Transaminitis again noted. Urinalysis positive for UTI - Imaging notable for no lobar consolidation or pneumothorax on chest x-ray. CT imaging negative for pulmonary pathology, no other clear abnormality to explain patient symptoms identified on imaging. - Upon serial reexamination after treatment the patient was improved - Based on patient history, evaluation, and testing as interpreted the most likely cause of the patient's condition is UTI. Antibiotic dose given. - The results of ED evaluation were discussed with the patient including prescriptions and/or symptomatic cares (if applicable) including appropriate and responsible use, followup plan, and return precautions. The patient verbalized understanding and felt safe for discharge. - Patient discharged in satisfactory condition. Note: Click bubbles or prepopulated shi in note writing are used for assistance with data collection and billing and are inherently more limited than narrative and other text portions of this note. Please use narrative for additional clinical history and defer to narrative/free test for any case of contradictory information. If information appears in only free text or click bubble it should be considered present or absent as reported. Please contact note song writer for clarifications of clinical information or contradictory information. MDM is a brief summary, contradictory or erroneous seeming information should be clarified and full note should be reviewed. Vital Signs: Vital signs: Vital Signs Temperature 97.6 F 04/09/22 12:58 Pulse Rate 92 04/09/22 17:07 Respiratory Rate 20 H 04/09/22 17:07 Blood Pressure 135/91 04/09/22 17:07 Pulse Oximetry 98 04/09/22 17:07 Oxygen Delivery Me thod 04/09/22 17:07 MDM - Chest Pain Medical Decision Making 41-year-old gentleman with complex past medical history presenting with g eneralized illness. Found to have UTI which likely explain symptoms. Satisfactory for outpatient management. Medical Records I reviewed the patient's medical records. Lab Data I reviewed the patient's lab results. : 04/09/22 13:17 04/09/22 13:17 Radiology Impressions Chest X-Ray 04/09/22 13:07 Impression: Negative chest. Chest/Abdomen/Pelvis CT 04/09/22 13:59 IMPRESSION: 1. Proximal main pulmonary arteries are normal. No evidence of pulmonary embolus. 2. Both lungs are well aerated. No acute pulmonary infiltrates. No focal pneumonia or pleural fluid. 3. Slightly prominent ascending thoracic aorta measuring 3.6 cm. 4. Marked hepatomegaly with diffuse fatty infiltration of the liver. He terogeneous parenchymal enhancement compatible with history of hepatocellular disease. 5. Mild to moderate scattered abdominal and pelvic ascites. 6. Mild perihepatic and perisplenic ascites. 7. No evidence of high-grade small or large bowel obstruction. 8. No other acute findings. Laboratory Results WBC 6.7 10^3/uL (4.0-10.0) 04/09/22 13:17 RBC 3.58 10^6/uL (4.1-5.3) L 04/09/22 13:17 Hgb 13.0 g/dL (11.7-16.6) 04/09/22 13:17 Hct 35.7 % (42.0-52.0) L 04/09/22 13:17 MCV 99.7 fl (80-94) H 04/09/22 13:17 MCH 36.3 pg (28.0-34.0) H 04/09/22 13:17 MCHC 36.4 g/dL (30.0-36.0) H 04/09/22 13:17 RDW 16.4 % (12.1-15.1) H 04/09/22 13:17 Plt Count 81 10^3/cmm (130-400) L 04/09/22 13:17 MPV 10.8 fL (7.4-10.4) H 04/09/22 13:17 Neut % (Auto) 67.3 % 04/09/22 13:17 Lymph % (Auto) 20.1 % 04/09/22 13:17 [place] % (Auto) 11.0 % 04/09/22 13:17 Eos % (Auto) 0.6 % 04/09/22 13:17 Baso % (Auto) 0.7 % 04/09/22 13:17 Neut # (Auto) 4.52 10^3/uL (1.8-7.7) 04/09/22 13:17 Lymph # (Auto) 1.4 10^3/uL (0.8-4.8) 04/09/22 13:17 [place] # (Auto) 0.7 10^3/uL (0.2-0.9) 04/09/22 13:17 Eos # (Auto) 0.0 10^3/uL (0.0-0.8) 04/09/22 13:17 Baso # (Auto) 0.1 10^3/uL (0.0-0.1) 04/09/22 13:17 Nucleated RBC % (auto) 0 % 04/09/22 13:17 Nucleated RBCs # 0.0 /100WBC 04/09/22 13:17 PT 17.90 SECONDS (12.1-14.9) H 04/09/22 13:17 INR 1.44 (0.8-1.2) H 04/09/22 13:17 APTT 41.2 SECONDS (23.9-36.7) H 04/09/22 13:17 D-Dimer 13.65 ug/mIFEU (0-0.59) H 04/09/22 13:17 Sodium 134 mmol/L (136-145) L 04/09/22 13:17 Potassium 3.1 mmol/L (3.5-5.1) L 04/09/22 13:17 Chloride 95 mmol/L (98-107) L 04/09/22 13:17 Carbon Dioxide 27 mmol/L (22-29) 04/09/22 13:17 Anion Gap 15.1 (5-19) 04/09/22 13:17 BUN 7 mg/dL (6-20) 04/09/22 13:17 Creatinine 0.5 mg/dL (0.7-1.2) L 04/09/22 13:17 GFR Calculation 182.3 mL/min (90-130) H 04/09/22 13:17 Glucose 112 mg/dL (65-115) 04/09/22 13:17 Calculated Osmolality 277 mOsm/kg (285-295) L 04/09/22 13:17 Lactic Acid 1.1 mmol/L (0.5-2.2) 04/09/22 16:05 Calcium 7.9 mg/dL (8.5-10.5) L 04/09/22 13:17 Total Bilirubin 4.1 mg/dL (0.15-1.2) H 04/09/22 13:17 AST 299 U/L (0-40) H 04/09/22 13:17 ALT 69 U/L (0-41) H 04/09/22 13:17 Alkaline Phosphatase 250 U/L (40-130) H 04/09/22 13:17 Ammonia 58 umol/L (16-60) 04/09/22 16:40 Troponin T Baseline 6 ng/L (0-15) 04/09/22 13:17 Troponin T 120 Minute 6.43 ng/L (0-15) 04/09/22 15:31 Delta Troponin T 0.43 ABS# (0-10) 04/09/22 15:31 NT-Pro-B Natriuret Pep 441 pg/mL (0-125) H 04/09/22 13:17 Total Protein 6.5 g/dL (6.6-8.7) L 04/09/22 13:17 Albumin 2.7 g/dL (3.5-5.2) L 04/09/22 13:17 Globulin 3.8 g/dL (1.3-4.6) 04/09/22 13:17 Lipase 80 U/L (13-60) H 04/09/22 13:17 TSH 7.53 uIU/mL (0.27-4.20) H 04/09/22 13:17 Free T4 1.53 ng/dL (0.82-1.77) 04/09/22 13:17 Urine Color [place] (Yellow) 04/09/22 13:35 Urine Appearance Clear (CLEAR) 04/09/22 13:35 Urine pH 6 (5-7) 04/09/22 13:35 Ur Specific [place] 1.010 (1.005-1.030) 04/09/22 13:35 Urine Protein 1+ (Negative) H 04/09/22 13:35 Urine Glucose (UA) Norm (Normal) 04/09/22 13:35 Urine Ketones 1+ (Negative) H 04/09/22 13:35 Urine Blood Neg (Negative) 04/09/22 13:35 Urine Nitrate Positive (Negative) H 04/09/22 13:35 Urine Bilirubin 2+ (Negative) H 04/09/22 13:35 Urine Urobilinogen 8 mg/dL (Negative) H 04/09/22 13:35 Ur Leukocyte Esterase 1+ (Negative) H 04/09/22 13:35 Urine RBC None /hpf (0-2) 04/09/22 13:35 Urine WBC 0-4 /hpf (0-5) H 04/09/22 13:35 Ur Squamous Epith Cells 0-4 /hpf (0-5) H 04/09/22 13:35 Amorphous Sediment Not Reportable 04/09/22 13:35 Urine Bacteria None /hpf (NONE) 04/09/22 13:35 Discharge Plan Discharge Patient Disposition: Home Clinical Impression: Acute UTI, Chest pain, Abdominal pain Condition: Stable Prescriptions: New cefpodoxime 200 mg tablet 200 mg PO BID Qty: 20 0RF Rx Instructions: must administer with a meal/food chlordiazepoxide HCl 25 mg capsule See Rx Instructions .ROUTE .COMPLEX Qty: 15 0RF Rx Instructions: Day 1: 50mg q6h Day 2: 25mg q6h Day 3: 25mg q12h Day 4: 25mg at night No Action ondansetron 4 mg tablet,disintegrating 4 mg PO TID PRN (Reason: nausea and vomiting) 5 Days Qty: 15 0RF Discharge Orders: Discharge ED (Routine); Ordered 04/09/22 Ordered By: Latrell Fishman Discharge Diet: Usual diet Discharge Activity: Increase activity as tolerated Patient Instructions: Cirrhosis of the Liver (ED), Urinary Tract Infection in Men (ED), Opioid Safety Activity Restrictions/Additional Instructions: Thank you for visiting the emergency department. You were seen and evaluated for abdominal pain with chest pain and other generalized symptoms. The exact cause of your symptoms is unclear though likely multifactorial including urinary tract infection and decompensation of underlying liver disease. I will message case management for follow-up and to establish with a primary care provider. I will treat your urine infection with antibiotics. Return to the emergency department for worsening symptoms, fevers, inability to tolerate medication, worsening abdominal pain, worsening jaundice, or anything else that you are concerned about a feel needs emergency department evaluation. Coding Level of Care Code ED Filler Operator for Odalis Fwd Exam Comprehensive
--- NOTE | 2022-04-09 13:07 | XR_ITS ---
WS: [id number] Portable AP upright chest, 04/09/2022 Clinical Data: cp Comparison: Portable chest, 06/22/2021. Findings: No nodules, masses or effusions are seen. The heart is normal. The pulmonary vascularity is not increased. No pneumonia or pneumothorax is seen. Monitor leads are on the chest wall. XR/XR chest 1V portable [id number] Impression: Negative chest.
--- NOTE | 2022-04-09 13:10 | ECG_ITS ---
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 Measurements Intervals [place] Rate: 106 P: 46 AL: 131 QRS: 68 QRSD: 92 T: 1 QT: 360 QTc: 478 Interpretive Statements SINUS TACHYCARDIA NONSPECIFIC ST & T-WAVE ABNORMALITY Compared to ECG 03/19/2022 16:22:22 T-wave abnormality now present Electronically Signed On 04-10-2022 14:32:52 CDT by Lew Rivera M.D. [email or web address] county [email or web address] Therapeuticsthe [facility].[employer]/store/[id number]
[2022-04-09 13:32] VITALS: BP 139/102; PULSE 105; RESP 19; O2SAT 98
[2022-04-09 13:35] LABS: Basophils # 0.1 10^3/uL (0.0-0.1); Basophils % 0.7 %; Eosinophils % 0.6 %; Hematocrit 35.7 % (42.0-52.0); Lymphocytes # 1.4 10^3/uL (0.8-4.8); Lymphocytes % 20.1 %; Mean Corpuscular HGB Conc 36.4 g/dL (30.0-36.0); Mean Corpuscular Hemoglobin 36.3 pg (28.0-34.0); Mean Corpuscular Volume 99.7 fl (80-94); Mean Platelet Volume 10.8 fL (7.4-10.4); Monocytes # 0.7 10^3/uL (0.2-0.9); Neutrophils # 4.52 10^3/uL (1.8-7.7); Neutrophils % 67.3 %; Nucleated Red Blood Cells % 0 %; Platelet Count 81 10^3/cmm (130-400); Red Blood Count 3.58 10^6/uL (4.1-5.3); Red Cell Distribution Width 16.4 % (12.1-15.1); White Blood Count 6.7 10^3/uL (4.0-10.0)
[2022-04-09 13:39] LABS: Glucose Urine UA Norm (Normal); Protein Urine 1+ (Negative); Urine Appearance Clear (CLEAR); Urine Color Orange (Yellow); pH Urine 6 (5-7)
[2022-04-09 13:40] LABS: Add Urine Microscopic? YES; Bilirubin Urine 2+ (Negative); Blood Urine Neg (Negative); Ketones Urine 1+ (Negative); Leukocyte Esterase Urine 1+ (Negative); Nitrate Urine Positive (Negative); Urobilinogen Urine 8 mg/dL (Negative)
[2022-04-09 13:42] VITALS: RESP 20; O2SAT 97
[2022-04-09] MEDS: morphine 4 mg/mL SDV 1 mL IVP (13:42)
[2022-04-09] MEDS: sodium chloride 0.9% 1,000 ML 999 ML IV (13:43)
[2022-04-09 13:47] LABS: Add Urine Culture? No; Squamous Epithelial Cell Urine 0-4 /hpf (0-5); WBC Urine 0-4 /hpf (0-5)
[2022-04-09 13:52] LABS: Troponin(5th) Baseline 6 ng/L (0-15)
--- NOTE | 2022-04-09 13:59 | CT_ITS ---
WS: [id number] CTA CHEST WITH ABDOMEN AND PELVIS TECHNIQUE: Noncontrast plus contrast enhanced CTA of the chest, abdomen, and pelvis with coronal and sagittal reformatted images and additional MIP Images. CLINICAL INFORMATION: RUQ abd pain, tachycardia COMPARISON: CT March 19, 2022 DLP: 33.[address] scans at [facility] use at least one of these dose optimization techniques: automated e xposure control; mA and/or kV adjustment per patient size (includes targeted exams where dose is matc hed to clinical indication); or iterative reconstruction. FINDINGS: Proximal main pulmonary arteries are normal. Normal segmental and subsegmental pulmonary arteries. No evidence of pulmonary embolus. Normal caliber descending thoracic aorta. Slightly ectatic ascending thoracic aorta measures 3.6 CM. No Mediastinal or hilar lymphadenopathy. No axillary lymphadenopathy. Both lungs are well aerated. No acute pulmonary infiltrates. No focal pneumonia or pleural fluid. Hepatomegaly with diffuse fatty infiltration liver. Heterogeneous hepatic enhancement. Slightly nodul ar capsular configuration to the liver. Fluid in the gallbladder fossa likely due to hepatic disease. Normal portal vein and splenic vein. Normal pancreas. Normal spleen. Adrenal glands are normal. No hydronephrosis. Normal caliber abdominal aorta. Small amount of perihep atic and perisplenic ascites. Mild to moderate scattered abdominal and pelvic ascites. Colon is decompressed. No evidence of high-grade small or large bowel obstruction. Diffuse mesenteric edema. Prominent lymph nodes in the shahnaz hepatis likely reactive. Schmorl's node thoracic spine. CT/CT angio chest w abd pel w con IMPRESSION: 1. Proximal main pulmonary arteries are normal. No evidence of pulmonary embol us. 2. Both lungs are well aerated. No acute pulmonary infiltrates. No focal pneum onia or pleural fluid. 3. Slightly prominent ascending thoracic aorta measuring 3.6 cm. 4. Marked hepatomegaly with diffuse fatty infiltration of the liver. Heterogen eous parenchymal enhancement compatible with history of hepatocellular disease. 5. Mild to moderate scattered abdominal and pelvic ascites. 6. Mild perihepatic and perisplenic ascites. 7. No evidence of high-grade small or large bowel obstruction. 8. No other acute findings.
[2022-04-09 14:12] LABS: Alanine Aminotransferase 69 U/L (0-41); Albumin Level 2.7 g/dL (3.5-5.2); Alkaline Phosphatase 250 U/L (40-130); Anion Gap 15.1 (5-19); Aspartate Amino Transferase 299 U/L (0-40); Blood Urea Nitrogen 7 mg/dL (6-20); Calcium 7.9 mg/dL (8.5-10.5); Carbon Dioxide 27 mmol/L (22-29); Chloride 95 mmol/L (98-107); Globulin 3.8 g/dL (1.3-4.6); Glomerular Filtration Rate 182.3 mL/min (90-130); Glucose 112 mg/dL (65-115); Lipase 80 U/L (13-60); NT Pro B Type Natriuretic Pept 441 pg/mL (0-125); Osmolality Calculated 277 mOsm/kg (285-295); Potassium 3.1 mmol/L (3.5-5.1); Sodium 134 mmol/L (136-145); Thyroid Stimulating Hormone 7.53 uIU/mL (0.27-4.20); Total Bilirubin 4.1 mg/dL (0.15-1.2); Total Protein 6.5 g/dL (6.6-8.7)
[2022-04-09 14:19] LABS: INR 1.44 (0.8-1.2)
[2022-04-09 14:20] LABS: Partial Thromboplastin Time 41.2 SECONDS (23.9-36.7)
[2022-04-09 14:29] LABS: D Dimer 13.65 ug/mIFEU (0-0.59)
[2022-04-09] MEDS: cefTRIAXone 1,000 MG in sodium chloride 0.9% (plus) 50 ML 100 MG IV (15:10)
[2022-04-09] MEDS: potassium chloride ER 20 mEq Tablet 40 MEQ PO (15:10)
[2022-04-09 15:12] LABS: Free T4 Free Thyroxine 1.53 ng/dL (0.82-1.77)
[2022-04-09 15:16] VITALS: BP 136/91; PULSE 89; RESP 18; O2SAT 98
[2022-04-09 16:06] LABS: Troponin 5 2HR 6.43 ng/L (0-15)
--- NOTE | 2022-04-09 16:34 | ECG_ITS ---
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 Measurements Intervals [place] Rate: 83 P: 110 [place]: 142 QRS: 64 QRSD: 94 T: 16 QT: 402 QTc: 474 Interpretive Statements SINUS RHYTHM Compared to ECG 04/09/2022 13:10:10 Sinus tachycardia no longer present T-wave abnormality no longer present Electronically Signed On 04-10-2022 14:41:40 CDT by Lew Rivera M.D. [email or web address] [email or web address] reserve [email or web address]/store/[id number]
[2022-04-09 16:41] LABS: Lactic Sepsis W/Reflex 1.1 mmol/L (0.5-2.2)
[2022-04-09 17:07] VITALS: BP 135/91; PULSE 92; RESP 20; O2SAT 98
[2022-04-09 17:11] LABS: Troponin 5 2HR Delta 0.43 ABS# (0-10)
[2022-04-09 17:19] LABS: Ammonia 58 umol/L (16-60)
--- NOTE | 2022-04-10 12:05 | DCPLANNER ---
Addendum entered by Anita Bearden 04/17/22 08:41: Patient had a follow up appointment scheduled at the [facility] to establish care - patient did attend appointment. Original Note: manager ob had message to speak with patient about getting established with a primary care physician. manager ob called phone number [phone], spoke with patients . manager ob was told that patient would like to be established with a primary care physician in [place]. manager ob called the [facility] clinic in [place], gave clinic patients information. A follow up appointment was scheduled for Thursday, April 14, 2022 at 3:20 with Kim Encarnacion NP. manager ob called patients , and gave her the appointment information. manager ob also told that the clinic would give her the president financial institution application for primary care to fill out.
== END 2022-04-09 17:38 | disposition home or self-care (01) ==
PROVIDERS: Emergency Provider Emergency Medicine
DX: R07.9 Chest pain, unspecified (principal); N39.0 Urinary tract infection, site not specified; Z86.19 Personal history of other infectious and parasitic diseases; F17.210 Nicotine dependence, cigarettes, uncomplicated
CPT/HCPCS: 36415; 71045; 71275; 74177; 80053; 81001; 82140; 83605; 83690; 83880; 84439; 84443; 84484; 85025; 85378; 85610; 85730; 87040; 93005; 96365; 96375; 99285; J0696; J2270; J7030; Q9967

== ENCOUNTER → 2022-04-14 17:04 | Outpatient (BNVA) | payer MEDICAID, SELFPAY | PROVIDERS: Visit Provider Nurse Practitioner Family | DX: B19.20 Unspecified viral hepatitis C without hepatic coma (principal); K74.60 Unspecified cirrhosis of liver; R18.8 Other ascites | CPT/HCPCS: 80053; 81000; 81003; 85025; 86705; 86706; 86709; 86803; 87086; 87340; 87522; 87902 ==

== ENCOUNTER 2022-04-15 12:33 | Day surgery (SDC) | payer MEDICAID, SELFPAY ==
--- NOTE | 2022-04-15 12:40 | US_ITS ---
WS: [id number] Abdominal ultrasound, limited. History: Evaluate for ascites. Comparison: None. All 4 quadrants are imaged by ultrasound to evaluate for ascites. Moderate to large amount of ascites noted in all 4 quadrants. Abdomen is marked by Dr. Gant for paracentesis. US/US abdomen lmt fluid [id number] IMPRESSION: Moderate to large amount of ascites.
[2022-04-15 12:48] VITALS: BP 121/88; PULSE 90; RESP 22; TEMP 36.7; O2SAT 98
[2022-04-15 12:59] VITALS: BMI 33.0
[2022-04-15] MEDS: lidocaine 1% INJ 20 mL 5 ML INJECTION (13:48)
[2022-04-15 14:12] VITALS: BP 113/88
[2022-04-15 14:27] LABS: Body Fluid Polynuclear #Cells 0.033; Body Fluid WBC 220 /uL; Monocytes # Body Fluid 0.187; RBC, Body Fluid 0 10^3/uL
[2022-04-15 14:29] LABS: Apprearance, Body Fluid CLEAR; Body Fluid Specific Gravity 1.015; Color, Body Fluid YELLOW
[2022-04-15 14:52] LABS: Albumin Body Fluid 0.4 g/dL; Fluid Alkaline Phos. 37 IU/L; Total Protein Body Fluid 1.2 g/dL
[2022-04-15 14:53] LABS: Amylase Body Fluid 6 U/L; Cholesterol Body Fluid 11 mg/dL (0-200); LDH Body Fluid 81 U/L; Triglycerides Body Fluid 32 mg/dL (0-150); Uric Acid Body Fluid 4 mg/dL
[2022-04-15 15:00] LABS: PATH Referral YES
[2022-04-17 06:55] LABS: Cyto Order Verification Order Verified
== END 2022-04-15 14:12 | disposition home or self-care (01) ==
LOC: GILAB 12:35
PROVIDERS: Visit Provider Internal Medicine
PROC: (CPT 49082; principal; 2022-04-15 13:00)
DX: R18.8 Other ascites (principal)
CPT/HCPCS: 49082; 76705; 80503; 82042; 82150; 82465; 82945; 83615; 83986; 84075; 84157; 84315; 84478; 84560; 87015; 87070; 87075; 87116; 87205; 87206; 87522; 87801; 88108; 89050

== ENCOUNTER 2022-04-23 21:49 | Emergency (ER) | payer MEDICAID, SELFPAY ==
[2022-04-23 21:51] VITALS: BP 111/89; PULSE 135; RESP 17; TEMP 37.1; O2SAT 96; BMI 33.7
--- NOTE | 2022-04-23 21:52 | CTR_ITS ---
PROCEDURE INFORMATION: Exam: CT Abdomen And Pelvis With Contrast Exam date and time: 04/23/2022 9:58 PM Age: 41 years old Clinical indication: Abdominal pain; Generalized; Prior surgery; Surgery type: Paracentesis; Patient HX: C/O abd pain with nausea. History of hep c. TECHNIQUE: Imaging protocol: Computed tomography of the abdomen and pelvis with contrast. Radiation optimization: All CT scans at this facility use at least one of these dose optimization techniques: automated exposure control; mA and/or kV adjustment per patient size (includes targeted exams where dose is matched to clinical indication); or iterative reconstruction. Contrast material: OMNI 350; Contrast volume: 80 ml; Contrast route: INTRAVENOUS (IV); COMPARISON: CT abdomen pelvis w con* [id number] 03/19/2022 5:22 PM RADIATION DOSE METRICS: Total DLP (mGy-cm): 1193.43 FINDINGS: Pleural spaces: Trace left pleural effusion. Liver: Inhomogenous cirrhotic appearing liver. No focal lesion identified. Gallbladder and bile ducts: Normal. No calcified stones. No ductal dilation. Pancreas: Normal. No ductal dilation. Spleen: Normal. No splenomegaly. Adrenal glands: Normal. No mass. Kidneys and ureters: Normal. No hydronephrosis. Stomach and bowel: Mild wall thickening in the ascending through descending transvrse colon is most likely related to nondistention. The stomach and small bowel are unremarkable. No obstruction. Appendix: No evidence of appendicitis. Intraperitoneal space: Large amount of ascites in the abdomen and pelvis. Mild edema and fluid in the mesentery. Vasculature: Unremarkable. No aneurysm. Lymph nodes: Prominent portal caval lymph nodes are most likely reactive. Urinary bladder: Unremarkable as visualized. Reproductive: Unremarkable as visualized. Bones/joints: Mild lumbar curvature. No fracture. Degenerative changes of the pubic symphysis. Soft tissues: Diffuse body wall edema. CT/CT abdomen pelvis w con* [id number] IMPRESSION: 1. Cirrhotic appearing liver. 2. Anasarca including large amount of ascites, body wall edema, and trace left pleural effusion. 3. Mild gastroesophageal varices.
[2022-04-23 22:05] LABS: Basophils # 0.1 10^3/uL (0.0-0.1); Basophils % 0.7 %; Eosinophils % 0.3 %; Hematocrit 30.3 % (42.0-52.0); Hemoglobin 10.5 g/dL (11.7-16.6); Lymphocytes # 3.2 10^3/uL (0.8-4.8); Lymphocytes % 23.2 %; Mean Corpuscular HGB Conc 34.7 g/dL (30.0-36.0); Mean Corpuscular Hemoglobin 36.2 pg (28.0-34.0); Mean Corpuscular Volume 104.5 fl (80-94); Mean Platelet Volume 10.5 fL (7.4-10.4); Monocytes # 0.8 10^3/uL (0.2-0.9); Monocytes % 6.1 %; Neutrophils # 9.54 10^3/uL (1.8-7.7); Neutrophils % 69.3 %; Nucleated Red Blood Cells % 0 %; Platelet Count 308 10^3/cmm (130-400); Red Cell Distribution Width 17.7 % (12.1-15.1); White Blood Count 13.8 10^3/uL (4.0-10.0)
[2022-04-23] MEDS: iohexol 350 mg/mL 100 mL Btl IV (22:06)
--- NOTE | 2022-04-23 22:15 | W.ED.GENADLT ---
HPI - General Adult General: Chief complaint: General Medical Stated complaint: ABD PAIN Time Seen by Provider: 04/23/22 21:50 History of Present Illness: 41-year-old alcoholic with significant cirrhosis presenting today with upper or lower GI bleed. Patient notes that he has been vomiting blood as well as having dark black tar colored stools. This been present for approximately 24 hours. He does note that he usually has darker stools. But this appears to be worsened today. He also notes significant worsening of his abdominal pain. He notes the pain is severe. Nonradiating. He denies chest pain. Has a history of chronic shortness of breath. History of COPD. For which she is post take medicines. He is not currently being treated for the COPD. He denies fevers or chills. Does not take any blood thinners. Review of Systems General: Reports: 10 or more systems reviewed and unremarkable except in HPI and below [facility] ED PFSH: Medical History Alcohol abuse Cirrhosis Hepatitis C Social History Smoking and tobacco status: current every day smoker (1/2 PPD) cigarettes Packs smoked per day: 0.5 Years cigarettes smoked: 20 Second hand smoke exposure: Yes Alcohol intake: former Year of sobriety/quit date alcohol: 10 d Former alcohol use details: fifth of whiskey/day Last alcohol use date: 04/05/22 Last substance use date: 04/13/22 Household members: spouse and family Marital status: service: No Current occupational status: disabled Current gender identity: Male Special chase needs: No Course Vital Signs: Vital signs: Vital Signs Temperature 98.8 F 04/23/22 21:51 Pulse Rate 135 H 04/23/22 21:51 Respiratory Rate 17 04/23/22 21:51 Blood Pressure 111/89 04/23/22 21:51 Pulse Oximetry 96 04/23/22 21:51 Oxygen Delivery Me thod 04/23/22 21:51 [facility] - General Adult Medical Decision Making 41-year-old male presenting today with upper lower GI bleed. Patient with a four-point drop in his hemoglobin over the last couple of weeks. CT abdomen pelvis without acute abnormality. Does show some varicosities. Blood alcohol is positive. Spoke to hospitalist about admission. They recommended transfer to a facility that has gastroenterology available. Spoke to Dr. Putnam and gastroenterology at [facility]. Who accepted transfer. Patient transferred in stable condition to [facility]. Lab Data : 04/23/22 21:58 04/23/22 21:58 Radiology Impressions Abdomen/Pelvis CT 04/23/22 21:52 IMPRESSION: 1. Cirrhotic appearing liver. 2. Anasarca including large amount of ascites, body wall edema, and trace left pleural effusion. 3. Mild gastroesophageal varices. Laboratory Results WBC 13.8 10^3/uL (4.0-10.0) H 04/23/22 21:58 RBC 2.90 10^6/uL (4.1-5.3) L 04/23/22 21:58 Hgb 10.5 g/dL (11.7-16.6) L 04/23/22 21:58 Hct 30.3 % (42.0-52.0) L 04/23/22 21:58 MCV 104.5 fl (80-94) H 04/23/22 21:58 MCH 36.2 pg (28.0-34.0) H 04/23/22 21:58 MCHC 34.7 g/dL (30.0-36.0) 04/23/22 21:58 RDW 17.7 % (12.1-15.1) H 04/23/22 21:58 Plt Count 308 10^3/cmm (130-400) 04/23/22 21:58 MPV 10.5 fL (7.4-10.4) H 04/23/22 21:58 Neut % (Auto) 69.3 % 04/23/22 21:58 Lymph % (Auto) 23.2 % 04/23/22 21:58 [place] % (Auto) 6.1 % 04/23/22 21:58 Eos % (Auto) 0.3 % 04/23/22 21:58 Baso % (Auto) 0.7 % 04/23/22 21:58 Neut # (Auto) 9.54 10^3/uL (1.8-7.7) H 04/23/22 21:58 Lymph # (Auto) 3.2 10^3/uL (0.8-4.8) 04/23/22 21:58 [place] # (Auto) 0.8 10^3/uL (0.2-0.9) 04/23/22 21:58 Eos # (Auto) 0.0 10^3/uL (0.0-0.8) 04/23/22 21:58 Baso # (Auto) 0.1 10^3/uL (0.0-0.1) 04/23/22 21:58 Nucleated RBC % (auto) 0 % 04/23/22 21:58 Nucleated RBCs # 0.0 /100WBC 04/23/22 21:58 Sodium 137 mmol/L (136-145) 04/23/22 21:58 Potassium 4.1 mmol/L (3.5-5.1) 04/23/22 21:58 Chloride 97 mmol/L (98-107) L 04/23/22 21:58 Carbon Dioxide 23 mmol/L (22-29) 04/23/22 21:58 Anion Gap 21.1 (5-19) H 04/23/22 21:58 BUN 34 mg/dL (6-20) H 04/23/22 21:58 Creatinine 1.0 mg/dL (0.7-1.2) 04/23/22 21:58 GFR Calculation 81.9 mL/min (90-130) L 04/23/22 21:58 Glucose 114 mg/dL (65-115) 04/23/22 21:58 Calculated Osmolality 292 mOsm/kg (285-295) 04/23/22 21:58 Calcium 8.4 mg/dL (8.5-10.5) L 04/23/22 21:58 Total Bilirubin 1.6 mg/dL (0.15-1.2) H 04/23/22 21:58 AST 83 U/L (0-40) H 04/23/22 21:58 ALT 29 U/L (0-41) 04/23/22 21:58 Alkaline Phosphatase 147 U/L (40-130) H 04/23/22 21:58 Total Protein 7.1 g/dL (6.6-8.7) 04/23/22 21:58 Albumin 2.7 g/dL (3.5-5.2) L 04/23/22 21:58 Globulin 4.4 g/dL (1.3-4.6) 04/23/22 21:58 Lipase 46 U/L (13-60) 04/23/22 21:58 Ethyl Alcohol 246 mg/dL (0-10) H 04/23/22 21:58 Discharge Plan Discharge Patient Disposition: Admitted As Inpatient Clinical Impression: GI (gastrointestinal bleed), Alcohol abuse, Cirrhosis, Hepatitis C Condition: Stable Coding Level of Care Code ED Conciliator for Odalis [address]
[2022-04-23] MEDS: HYDROmorphone 1 mg/mL INJ 1 mL IVP (22:27)
[2022-04-23 22:35] LABS: Alanine Aminotransferase 29 U/L (0-41); Albumin Level 2.7 g/dL (3.5-5.2); Alcohol Level 246 mg/dL (0-10); Alkaline Phosphatase 147 U/L (40-130); Anion Gap 21.1 (5-19); Aspartate Amino Transferase 83 U/L (0-40); Blood Urea Nitrogen 34 mg/dL (6-20); Calcium 8.4 mg/dL (8.5-10.5); Carbon Dioxide 23 mmol/L (22-29); Chloride 97 mmol/L (98-107); Globulin 4.4 g/dL (1.3-4.6); Glomerular Filtration Rate 81.9 mL/min (90-130); Glucose 114 mg/dL (65-115); Lipase 46 U/L (13-60); Osmolality Calculated 292 mOsm/kg (285-295); Potassium 4.1 mmol/L (3.5-5.1); Sodium 137 mmol/L (136-145); Total Bilirubin 1.6 mg/dL (0.15-1.2); Total Protein 7.1 g/dL (6.6-8.7)
[2022-04-23] MEDS: pantoprazole 40 mg SDV 80 MG IVP (23:11)
[2022-04-23] MEDS: ondansetron 2 mg/ML SDV 2 mL 4 MG IVP (23:11)
[2022-04-24 00:28] VITALS: BP 99/66
[2022-04-24 00:34] VITALS: BP 102/57; PULSE 130; RESP 24; O2SAT 92
[2022-04-24 00:47] VITALS: BP 127/78; PULSE 135; RESP 20; O2SAT 94
== END 2022-04-24 00:49 | disposition admitted as inpatient to this hospital (09) ==
PROVIDERS: Emergency Provider Emergency Medicine
DX: K92.2 Gastrointestinal hemorrhage, unspecified (principal); F10.10 Alcohol abuse, uncomplicated; K74.60 Unspecified cirrhosis of liver; B19.20 Unspecified viral hepatitis C without hepatic coma; F17.210 Nicotine dependence, cigarettes, uncomplicated
CPT/HCPCS: 74177; 80053; 80307; 83690; 85025; 86850; 86900; 96374; 96375; 99285; C9113; J1170; J2405; Q9967